=== PATIENT | female | born 1980 | race Caucasian/White ===

== ENCOUNTER 2024-05-15 01:35 | Emergency (ER) | payer OTHER, SELFPAY ==
[2024-05-15 01:43] VITALS: BP 155/102; PULSE 80; RESP 20; TEMP 36.8; O2SAT 95; BMI 31.3
[2024-05-15] MEDS: AMOXICILLIN/CLAVULANATE POTASSIUM 875/125MG TABLET 1 EACH PO (02:35)
[2024-05-15] MEDS: KETOROLAC 30MG/ML VIAL 15 MG IM (02:35)
[2024-05-15] MEDS: TETRACAINE/BENZOCAINE/BUTAMBEN 56 GM SPRAY TP (02:35)
[2024-05-15] MEDS: LIDOCAINE 2% VISCOUS SOL 15ML UDC 15 ML PO (02:35)
--- NOTE | 2024-05-15 02:56 | ED_ITS ---
Discharge Plan Disposition Patient Disposition: Home, Self-Care Condition: Good Prescriptions Prescriptions: New amoxicillin-pot clavulanate 875-125 mg tablet 1 tab PO BID Qty: 20 0RF chlorhexidine gluconate [Peridex] 0.12 % mouthwash 15 ml buccal DAILY 10 Days Qty: 1893 0RF Referrals Follow up/Referrals: Zaki Louise MD [Primary Care Provider] - See instructions Activity Restrictions/Add. Instructions Additional Instructions/Restrictions: You were evaluated in the ER and are appropriate for discharge at this time. Take the prescribed antibiotics as directed, do not skip doses, do not stop taking them early. Also use the prescribed mouthwash as directed. Take Tylenol and ibuprofen if needed for pain, do not exceed the recommended dose on the bottle. Drink water and eat a small snack each time you take these medications to avoid side effects. Use the provided dental balls. Applied to the most painful area. Leave on for 1 hour and remove for 1 hour. Do not eat, drink, or sleep with these in place. Make an appointment with a dentist as soon as possible for further evaluation and tooth removal. Follow-up with primary care doctor for reevaluation in a few days. Return to the ER with any new, worsening, or otherwise concerning symptoms. Clinical Impressions Clinical Impression: Pain, dental, Dental infection Print Language Print Language: Belarusian Discharge ED Provider: Fe Vitale Adult HPI General Chief complaint: PAIN Stated complaint: tooth pain Time Seen by Provider: 05/15/24 02:01 Mode of Arrival: Ambulatory Source of Information: Patient Description of Symptoms (Recalled from ER Triage Doc. by RN): Pt states she has left lower toothache History of Present Illness HPI narrative: 44 year old female who reports a history of hypertension but noncompliance with her BP medications presents to the ER with a broken tooth she believes is now infected. Patient reports she has had a broken tooth for quite a while but has been unable to see a dentist secondary to changes in her insurance. She reports the last day the pain near this tooth has gotten significantly worse. She took Midol prior to arrival but this did not help the pain significantly. She states she is concerned for infection. The last time she saw dentist was approximately a year ago. She has no difficulty breathing or swallowing, she does not report swelling under the tongue or jaw. No fevers or chills. No other associated symptoms. Related Data Previous Rx's ?Medication ?Instructions ?Recorded amoxicillin 875 mg-potassium 1 tab PO BID #20 tabs 05/15/24 clavulanate 125 mg tablet chlorhexidine gluconate 0.12 % 15 ml buccal DAILY 10 days #1,893 05/15/24 mouthwash (Peridex) mL Allergies Allergy/AdvReac Type Severity Reaction Status Date / Time erythromycin base (From Allergy Intermediate Hives Verified 05/15/24 01:46 Erythrocin) [facility] Disclaimer: The information contained in this section may have been updated after the patient was seen, as this information can be updated by other users. Social History Smoking Status: Current every day smoker alcohol intake: never current occupational status: other Travel in the last 8 weeks: None ROS Obtained: Yes Systems reviewed as appropriate & no additional complaints except as documented Per HPI Physical Exam General General appearance: alert and in no apparent distress Head Head exam: atraumatic and normocephalic Eye Eye exam: Present PERRL and EOMI ENT ENT exam: Present mucous membranes moist Expanded ENT Exam Teeth exam: Present fractured tooth # (18 with associated dental caries), dental tenderness # (18 with associated gingival swelling but no abscess) and gingival swelling Comment: No sublingual or submandibular swelling or woodiness, no stridor, tolerating secretions well, no trismus Neck Neck exam: Present normal inspection and full ROM Chest Chest inspection: Present symmetric chest wall rise Respiratory Respiratory exam: Absent respiratory distress or stridor Cardiovascular Cardiovascular exam: Present regular rate and normal rhythm Extremities Exam Extremities exam: Present full ROM Neurological Exam Neurological exam: Present alert and oriented X3; Absent motor sensory deficit Psychiatric Psychiatric exam: Present normal affect and normal mood Skin Skin exam: Present warm and dry Medical Decision Making Medical Records Screening: Per USPSTF and CDC recommendations, given the prevalence of disease in our region, it is our hospital?s policy to screen for HIV and viral Hepatitis for all patients aged 18 and over and those with ongoing risk factors. Sebastian Inquiry Pt receiving controlled substance: No Vital Signs: 05/15/24 01:43 Temperature 98.2 F Temperature Source Oral Pulse Rate [Right Brachial] 80 Respiratory Rate 20 Blood Pressure [Right Arm] 155/102 H Blood Pressure Mean [Right Arm] 119 Blood Pressure Source [Right Arm] Automatic Cuff Blood Pressure Position [Right Arm] Sitting 02 Sat by Pulse Oximetry 95 Oxygen Delivery Method Room Air Orders (Tests/Meds): ED MEDICATIONS Discontinued Medications Generic Name Dose Route Start Last Admin Trade Name Anthony PRN Reason Stop Dose Admin Amoxicillin/Clavulanate Potassium 1 each 05/15/24 02:30 05/15/24 02:35 Amoxicillin/Clavulanate Potassium 875/125mg Tablet PO 05/15/24 02:31 1 each ONCE ONE Administration Benzocaine/Butamben/Tetracaine HCl 1 gm 05/15/24 02:30 05/15/24 02:35 Tetracaine/Benzocaine/Butamben 56 Gm Dixon TP 05/15/24 02:31 1 gm ONCE ONE Administration Ketorolac Tromethamine 15 mg 05/15/24 02:30 05/15/24 02:35 Ketorolac 30mg/Ml Vial IM 05/15/24 02:31 15 mg ONCE ONE Administration Lidocaine HCl 15 ml 05/15/24 02:30 05/15/24 02:35 Lidocaine 2% Viscous Isa 15ml Udc PO 05/15/24 02:31 15 ml ONCE ONE Administration Medical Decision Narrative: In summary, this 44-year-old female with comorbidities described in the HPI not at goal therapy presents to the emergency department today with left mandibular dental pain. On initial evaluation patient is hemodynamically stable, afebrile, overall well-appearing, tenderness to palpation at the base of tooth 18 with associated gingival swelling but no abscess. The tooth is fractured and there are associated dental caries. Differential diagnosis includes but is not limited to dental fracture, gingivitis, dental abscess, I considered Cal's angina but have no evidence of this clinically since patient does not have any woodiness of the floor the mouth, no submandibular swelling, no lymphadenopathy, no stridor or difficulty tolerating secretions, no trismus, no fever. I do not believe patient requires labs or imaging. I offered her dental block but after shared decision-making conversation, she declined this. She would prefer to have dental balls. I also administered Toradol for pain control. Patient also received Augmentin for infection treatment. Augmentin was prescribed as well as Peridex oral solution. Patient was given instructions on symptomatic management, medication use, follow up instructions, and return precautions for the emergency department. Patient indicated understanding and was discharged in stable condition. Critical Care Critical Care Time Critical Care Time: No
[2024-05-15 03:05] VITALS: BP 158/116; PULSE 83; RESP 18; TEMP 36.7; O2SAT 99
== END 2024-05-15 03:13 | disposition home or self-care (01) ==
LOC: ER 03:08
PROVIDERS: Emergency Provider Emergency Medicine; PCP Pediatrics
DX: K06.1 Gingival enlargement (principal); K02.9 Dental caries, unspecified; I10 Essential (primary) hypertension; F17.210 Nicotine dependence, cigarettes, uncomplicated; Z91.148 Patient's other noncompliance with medication regimen for other reason; K08.89 Other specified disorders of teeth and supporting structures
CPT/HCPCS: 96372; 99283; J1885

== ENCOUNTER 2024-08-19 16:42 | Emergency (ER) | payer OTHER, SELFPAY ==
[2024-08-19 16:48] VITALS: BP 132/91; PULSE 84; O2SAT 99
--- OUTSIDE RECORDS SUMMARY | 2024-08-19 16:50 | XMS_ITS | Encounter Summary ---
Author Organization Healthcare Address [address] [place] [address] Care Team Providers Care Lining Stitcher Name Role Phone None, None Primary Care Provider [phone] Zaki Louise Primary Care Provider [phone] Encounter Details Date Type Department Care Team (Late st Contact Info) Description 09/01/2021 Ophth Exam [facility] [address] [place] [address] Fei Luna MD [address] [address] Social History Tobacco Use Types Packs/Day Years Used Date Smoking Tobacco: Every Day Cigarettes Smokeless Tobacco: Never Alcohol Use Standard Drinks/Week Comments Not Currently 0 (1 standard drink = 0.6 oz pur e alcohol) Comments No Sex and Gender Information Value Date Recorded Sex Assigned at Female 08/31/2021 11:21 AM EDT Legal Sex Female 8:46 PM EDT Gender Identity Female 08/31/2021 11:21 AM EDT Sexual Orientation Straight 08/31/2021 11 :21 AM EDT COVID-19 Exposure Response Date Recorded In the last 10 days, have yo u been in contact with someone who was confirmed or suspected to have Coronavirus/COVID-19? No / Unsure 09/01/2021 3:14 PM EDT documented as of this encounter Functional Status * Calculated C-SSRS Risk Score (Lifetime/Recent) Answer Date of Assessment Author No Risk Indicated 09/01/2021 5:10 PM EDT Mariama Gutierrez RN * Question Answer Date of Assessment Author 1. Wish to be (Past 1 Month) No 09/01/2021 5:10 PM EDT Mariama Childers RN 2. Non-Specific Active Suici justo Thoughts (Past 1 Month) No 09/01/2021 5:10 PM EDT Sacha Childers RN 6. Suicidal Behavior (Lifetime) No 5:10 PM EDT Mariama Childers RN documented as of this encounter Plan of Treatment Not on file documented as of this encounter Visit Diagnoses Not on filedocumented in this encounter Additional Health Concerns Infection Onset Date Last Indicated Resolved Time Meningitis Rule-Out 10/15/2021 10/15/2021 10/16/19 1:06 PM EDT Assessment Noted Time A fall risk assessment has been complete d for the patient 03/10/2021 3:17 PM EST documented as of this encounter Care Teams Lining Stitcher Relationship Specialty Start Date End Date None, None [address] [place] [id number] PCP - General 08/12/20 10/14/21 Zaki Louise [address] [place] [id number] PCP - General 10/15/21 documented as of this encounter
--- OUTSIDE RECORDS SUMMARY | 2024-08-19 16:50 | XMS_ITS | Encounter Summary ---
Author Organization Healthcare Address [address] [place] [address] Care Team Providers Care Human Services Professional Name Role Phone None, None Primary Care Provider [phone] Zaki Louise Primary Care Provider [phone] Encounter Details Date Type Department Care Team (Late st Contact Info) Description 08/13/2020 Ophth Exam [facility] [address] [place] [address] Serg Henderson, Social History Tobacco Use Types Packs/Day Years Used Date Smoking Tobacco: Every Day Cigarettes Smokeless Tobacco: Never Alcohol Use Standard Drinks/Week Comments Not Currently 0 (1 standard drink = 0.6 oz pur e alcohol) Comments Unknown Sex and Gender Information Value Date Recorded Sex Assigned at Female 08/31/2021 11:21 AM EDT Legal Sex Female 8:46 PM EDT Gender Identity Female 08/31/2021 11:21 AM EDT Sexual Orientation Straight 08/31/2021 11 :21 AM EDT COVID-19 Exposure Response Date Recorded In the last month, have you been in contact with someone who was confirmed or suspected to have Coronavirus / COVID-19? No / Unsure 08/12/2020 10:56 PM EDT documented as of this encounter Functional Status * Calculated C-SSRS Risk Score (Lifetime/Recent) Answer Date of Assessment Author No Risk Indicated 08/13/2020 8:03 AM EDT Dulce Benavides RN * Question Answer Date of Assessment Author 1. Wish to be (Past 1 Month) No 021 8:03 AM EDT Dulce Benavdies RN 2. Non-Specific Active Suici justo Thoughts (Past 1 Month) No 08/13/2020 8:03 AM EDT Tiffanie Benavides RN 6. Suicidal Behavior (Lifetime) No 8:03 AM EDT Dulce Benavides RN documented as of this encounter Plan of Treatment Not on file documented as of this encounter Visit Diagnoses Not on filedocumented in this encounter Additional Health Concerns Infection Onset Date Last Indicated Resolved Time Meningitis Rule-Out 10/15/2021 10/15/2021 10/16/19 22 1:06 PM EDT documented as of this encounter Care Teams Human Services Professional Relationship Specialty Start Date End Date None, None [address] [place] [id number] PCP - General 08/12/20 10/14/21 Zaki Louise [address] [place] [id number] PCP - General 10/15/21 documented as of this encounter
--- OUTSIDE RECORDS SUMMARY | 2024-08-19 16:50 | XMS_ITS | Clinical Summary ---
Author Organization [facility] Address [address] [place] [address] Care Team Providers Care Transit Vehicle Inspector Name Role Phone Zaki Louise Renetta Primary Care Provider [phone] Allergies Active Allergy Reactions Criticality Noted Date Comments Azithromycin Unknown - Patient st ates they do not know rxn details Low 05/17/2014 Chocolate Hives Medium 08/13/2020 Codeine Nausea,Other - pleas e document in the comment field Low 2020 Erythromycin Rash,Hives,Unknown - Patient states they do not know rxn details Medium 03/13/2020 Mushroom Extract Complex (Obsolete) Other - please document in the comment field Low 08/13/2020 blisters Medications famotidine (Pepcid) 10 MG tabletIndication s:Heartburn Take 1 tablet (10 mg) by mouth 1 (one) time each day before evening meal. Active SUMAtriptan (Imitrex) 50 MG tablet Take 1 tablet (50 mg) by mouth if needed for migraine. May repeat dose once in 2 hours if no relief. Do not exceed 2 doses in 24 hours. Active calcium carbonate (Tums) 500 MG chewable tablet Chew 2 tablets (1,000 mg) every night. 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 Now pt presents with LE scotoma with disc finding suspicious for mild disc edema. Her OCT evaluation as compared to prior, shows mild increased retinal nerve fibre thickness (Previous average in inferior quadrant is 145 , now it is 161). This is small variation , however given that mild increased disc edema is symptomatic with new scotoma in left eye, and given her prior history, it is suspicious for optic neuritis. Given her rt eye Vn is 20/800, she is now one eyed and would need admission for work up for repeat imaging and consideration of IV steroids vs IvIG/PLEX if she were actually having a repeat event. Her optic neuritis appears atypical due to 1. Presence of disc edema- majority of typical optic neuritis 2/2 MS is retrobulbar 2. Lack of visual recovery in RE After [address] st event. Her prior NMO/MOG results have been negative. Her prior RE disc edema is quite florid and makes it less likely to be Lebers. --MRV without evidence of stenosis or thrombosis - CTA head and neck with evidence of possible high-grade stenosis of distal right vertebral artery - MRI orbits - questionable rt optic nerve enhancement - ESR CRP, Bartonella antibody titers, SAHARA, Lyme serology, QuantiFERON were unremarkable -syphilis IgG antibody was positive but treponema pallidum particle agg. Test and RPR were not reactive. She was also seen by infectious disease who thought that the syphilis results were likely false-positive and unlikely cause of optic neuritis. -Her Bartonella IgG was positive but IgM was negative and was thought to be likely from a previous exposure to Bartonella and then recommended repeating labs in 2 weeks. - CSF showed normal protein, elevated glucose likely secondary to hyperglycemia, normal cell count, CSF VDRL negative, CSF MS panel negative - NMO/MOG negative Plan - Admit to General Neurology - MRI H and Orbit wwo contrast - May consider repeat LP if imaging is unrevealing - Repeat NMO/MOG, SAHARA, Bartonella titre - Could consider autoimmune/paraneoplastic work up if first line of investigation is negative. - Will hold DVT prophylaxis for possible LP - Will not initiate on further treatment for now, pending MRI Optic neuropathy, right 2020 Afferent pupillary defect of right eye Ear drainage 2020 Joint pain 2020 Profound vision loss of one eye 2020 Sinus problem 2020 Visual field defect of right eye 2020 High risk multigravida, antepartum 11/08/2014 Resolved Problems Problem Noted Date Diagnosed Date Resolved Date Acute ischemic left MCA stroke 09/01/2021 09/02/2021 Family History Medical History Relation Name Comments Breast cancer Mother Relation Name Status Comments Mother Social History Tobacco Use Types Packs/Day Years Used Date Smoking Tobacco: Every Day Cigarettes 1 26.5 Started: 1998 Smokeless Tobacco: Never Tobacco Cessation:Ready to Q uit: Not Asked; Counseling Given: Not Answered Alcohol Use Standard Drinks/Week Comments Not Currently 0 (1 standard drink = 0.6 oz pur e alcohol) Comments No Sex and Gender Information Value Date Recorded Sex Assigned at Female 08/31/2021 11:21 AM EDT Legal Sex Female 8:46 PM EDT Gender Identity Female 08/31/2021 11:21 AM EDT Sexual Orientation Straight 08/31/2021 11 :21 AM EDT Last Filed Vital Signs Vital Sign Reading Time Taken Comments Blood Pressure 131/84 10/15/2021 11:00 AM EDT Pulse 61 10/15/2021 11:00 AM EDT Temperature 37.2 C (99 F) 10/15/2021 10:20 AM EDT Respiratory Rate 14 10/15/2021 11:00 AM EDT Oxygen Saturation 92% 10/15/2021 11:00 AM EDT Inhaled Oxygen Concentration - - Weight 96.8 kg (213 lb 6.5 oz) 10/15/2021 8:50 A M EDT Height 170.2 cm (5' 7 ) 10/15/2021 8:50 AM EDT Body Mass Index 33.42 10/15/2021 8:50 AM EDT Plan of Treatment Health Maintenance Due Date Last Done Comments [facility]-Depression Screening 1980 [facility]-/Child/Adol SDOH Screenings 1982 [facility]-Varicella Vaccines (1 of 2 - 13+ 2-dose series) 1995 HPV Vaccines (1 - 3-dose series) 1997 [facility]-Hepatitis B Vaccines (2 of 3 - 3-dose series) 10/30/1997 10/02/1997 [facility]- SDOH Screenings 2000 [facility]-Adult SDOH Screenings 2000 [facility]-Pap Smear 05/27/2003 05/26/2000 [facility]-Cervical Cancer Screening 2012 [facility]-HPV/Cotest 2012 05/26/2000 [id number] Vaccine ( - season) 2023 12/16/2020 [facility]-Influenza Vaccine (Season Ended) 2024 12/24/2010, 12/12/2008 [facility]-DTaP,Tdap,and Td Vaccines (3 - Td or Tdap) 08/14/2026 08/14/2016, 10/02/1997 [facility]-Zoster Vaccines (1 of 2) 2032 [facility]-HIV Screening Completed 09/01/2021, , 03/14/2020, Additional history exists [facility]-Hepatitis C Screening Completed 2021, 08/13/2020, 03/14/2020, Additional history exists [facility]-Obesity Intervention Completed 04/05/2022 [facility]-HIB Vaccines Aged Out No longer e ligible based on patient's age to complete this topic [facility]-Hepatitis A Vaccines Aged Out No longer eligible based on patient's age to complete this topic [facility]-IPV Vaccines Aged Out No longer e ligible based on patient's age to complete this topic [facility]-Pneumococcal Vaccine: Pediatrics (0 to 5 Years) and At-Risk Patients (6 to 49 Years) Aged Out No longer eligible based on patient's age to complete this topic [facility]-Rotavirus Vaccines Aged Out No lo nger eligible based on patient's age to complete this topic Procedures Procedure Name Priority Date/Time Associated Diagnosis Comments HEPATITIS C ANTIBODY - ED W/REFLEX TO HCV QUANT PCR STAT 09/01/2021 3:27 PM EDT HIV 1/2 ANTIBODY/ANTIGEN SCREEN WITH REFLEX TO HIV I/II DIFFERENTIATION STAT 09/01/2021 3:27 PM EDT CYTO DATA CONVERSION Routine 05/26/2000 12:00 AM EDT from Last 3 Months or Most Recently Relevant to Health Maintenance Results * HIV 1 & 2 Antibody/Antigen Screen (09/01/2021 3:27 PM EDT) Pathologist [facility] HIV 1 & 2 Antibody/Anti gen Screen Nonreactive Nonreactive 09/01/2021 5:47 PM EDT [facility] Blood Venous blood specimen / Unknown Venipuncture / Unknown 09/01/2021 3:27 PM EDT 09/01/2021 4:20 PM EDT us Bran Yi MD LAB BLOOD ORDERABLES Final Result Performing Organization Address City/[facility] Co de Phone Number [facility] [address] [place] [address] * Hepatitis C Antibody - ED (09/01/2021 3:27 PM EDT) Pathologist [facility] Hepatitis C Antibody Negative Negative 09/01/2021 5:46 PM EDT [facility] Blood Venous blood specimen / Unknown Venipuncture / Unknown 09/01/2021 3:27 PM EDT 09/01/2021 4:20 PM EDT us Bran Yi MD LAB BLOOD ORDERABLES Final Result Performing Organization Address City/[facility] Co de Phone Number [facility] [address] [place] [address] * (ABNORMAL) Cytology (05/26/2000 12:00 AM EDT) 05/26/2000 05/27/2000 8:4 7 AM EDT Narrative [facility] - 06/07/2000 10:14 AM EDT [facility] MR #: [id number] [facility] [address] [place], [place] [address] 1980 (Age: 20) FW Collect Date: 05/26/2000 00:00 Receipt Date: 05/27/2000 08:47 Page 1 DEPARTMENT OF PATHOLOGY AND LABORATORY MEDICINE CYTOPATHOLOGY REPORT Email: [email or web address] [phone] ATTENDING MD/Practitioner: Nancie Campos MD Service: CWO Location: [facility] Reported: 06/07/2000 10:14 Collected: 05/26/2000 00:00 INTERPRETATION CERVICAL/VAGINAL PAP SMEAR: RARE ATYPICAL SQUAMOUS CELLS OF UNDETERMINED SIGNIFICANCE. SATISFACTORY BUT LIMITED BY PARTIALLY OBSCURING INFLAMMATION. CONSIDER REPEAT PAP IN 4-6 MONTHS UTILIZING THE THIN PREP (LIQUID BASED PAP). Electronically Signed Out CAITLYN Serrano (ASCP) Joe Araujo MD Cervical cytology is a screening test primarily for squamous cancers and precursors and has associated false negative and positive results. New technologies such as liquid based sampling may decrease but will not eliminate all false negative results. Regular screening and follow-up of unexplained clinical signs and symptoms are recommended to minimize false negative results. Please see the ASCCP website (www.asccp.org) for followup recommendations. If HPV testing was requested, correlation with the results is suggested (please call Microbiology at [phone] for results). CLINICAL INFORMATION: Menstrual History: Date of Last Menstrual Period: {Not Provided} Contraceptive History: Depo SPECIMEN DESCRIPTION: A: CERVICAL/VAGINAL PAP SMEAR SMEARS: PAP STAIN ICD: 795.0 ABNORMAL PAP SMEAR CERVIX, NONSPECIFIC V24.2 ROUTINE FOLLOW-UP F: A; 74024 SCREEN, 04271 C\V (PO) SNOMED CODES: A; [id number] M- [id number] In cases where a pathologist has signed out the report, the service has been rendered in part by a resident. The signing pathologist has performed and is responsible for the reported pathologic evaluation. us Historical Provider LAB PATHOLOGY ORDERABLES Final Result [facility]QUEST from Last 3 Months or Most Recently Relevant to Health Maintenance Insurance [employer] [facility] MEDICAID Advance Directives * Full Code (Latest Code Status on File) Date Activated Date Inactivated Comments 08/13/2020 2:06 AM 08/13/2020 7:52 PM Question Answer Comments Patient has decision-making capacity? Yes Care Teams Transit Vehicle Inspector Relationship Specialty Start Date End Date Zaki Louise [address] [place] [address] PCP - General 10/15/21
--- OUTSIDE RECORDS SUMMARY | 2024-08-19 16:50 | XMS_ITS | Data Portability ---
Author Organization [facility] Miguel Angel & MUNIR Galaviz ADMIN Address [address] [place] [id number] Care Team Providers Care Duty Manager Name Role Phone AYAD BOO Primary Care Provider Unavailab le Assessment No assessment recorded. Plan of Treatment Reminders Order Date Submit Date Provider Last Modified By Organization Details Last Modified Time Details Appointments None recorded. Lab lipid panel, serum 2023 024 [facility], [address], [address], [place], [address], 4 06:38:03 TSH + free T4, serum 2023 024 [facility], [address], [address], [place], [address], 4 06:38:00 CBC w/ auto diff 2023 024 [facility], [address], [address], [place], [address], 4 06:38:01 CMP, serum or plasma 2023 024 [facility], [address], [address], [place], [address], 4 06:38:02 Referral None recorded. Procedures None recorded. Surgeries None recorded. Imaging MAMMO, screening, bilateral - Okay to perform an additional tests if needed. [email or web address] (Centralized Scheduling), [address], [place], [address], 4 10:21:45 Medication Orders omeprazole 20 mg capsule,de layed release 2023 024 [facility], [address] [place] [address], [facility], [place], [address], 5 15:58:45 lisinopril 5 mg tablet 2023 024 [facility], [address] [place] [address], [address] [address], [place], [address], 5 15:58:43 amoxicilli n 875 mg tablet [address], [address] [place] [address], [place], [address], 4 11:01:28 fluticason e propionate 50 mcg/actuat ion nasal spray,susp ension 2022 023 [facility], [address] [place] [address], [facility], [place], [address], 4 11:22:21 omeprazole 20 mg capsule,de layed release 2022 023 [facility], [address] [place] [address], [address] [address], [place], [address], 3 15:58:57 Patient TargetsNo targets recorded. Patient InstructionsNo instructions recorded. Reason for Referral None Reported. Results Created Date Observation Date Name Description Value Unit Range Abnormal Flag Note LastModifiedBy Organization Detail LastModifiedTime 01/03/20 24 01/04/2024 TSH+F REE T4 TSH 0.839 uIU/m L 0.450- 4.500 normal Not Available [facility] ([facility]) [address], [place], [address], 01/04/2024 06:38:00 11/12/20 24 01/04/2024 TSH+F REE T4 T4,free(dire ct) 1.11 NG/dL 0.82-1 .77 normal Not Available [facility] ([facility]) [address] [place], [address], 01/04/2024 06:38:00 01/03/20 24 01/04/2024 CBC WITH DIFFE RENTI AL/PL ATELE T WBC 9.3 x10e3 /uL 3.4-10 .8 normal Not Available [facility] ([facility]) [address] [place], [address], 01/04/2024 06:38:01 01/03/20 24 01/04/2024 CBC WITH DIFFE RENTI AL/PL ATELE T RBC 4.53 x10e6 /uL 3.77-5 .28 normal Not Available [facility] ([facility]) [address] [place], [address], 01/04/2024 06:38:01 01/03/20 24 01/04/2024 CBC WITH DIFFE RENTI AL/PL ATELE T hemoglobin 15.3 g/dL 11.1-1 5.9 normal Not Available [facility] ([facility]) [address] [place], [address], 01/04/2024 06:38:01 01/03/20 24 01/04/2024 CBC WITH DIFFE RENTI AL/PL ATELE T hematocrit 45.4 % 34.0-4 6.6 normal Not Available [facility] ([facility]) [address] [place], [address], 01/04/2024 06:38:01 01/03/20 24 01/04/2024 CBC WITH DIFFE RENTI AL/PL ATELE T MCV 100 fL 79-97 above high normal Not Available [facility] ([facility]) [address] [place], [address], 01/04/2024 06:38:01 01/03/20 24 01/04/2024 CBC WITH DIFFE RENTI AL/PL ATELE T MCH 33.8 pg 26.6-3 3.0 above high normal Not Available [facility] ([facility]) [address] [facility], [place], [address], 01/04/2024 06:38:01 01/03/20 24 01/04/2024 CBC WITH DIFFE RENTI AL/PL ATELE T MCHC 33.7 g/dL 31.5-3 5.7 normal Not Available [facility] ([facility]) [address] [place], [address], 01/04/2024 06:38:01 01/03/20 24 01/04/2024 CBC WITH DIFFE RENTI AL/PL ATELE T RDW 11.7 % 11.7-1 5.4 Not Available [facility] ([facility]) [address] [facility], [place], [address], 01/04/2024 06:38:01 01/03/20 24 01/04/2024 CBC WITH DIFFE RENTI AL/PL ATELE T platelets 272 x10e3 /uL 150-45 0 normal Not Available [facility] ([facility]) [address] [facility], [place], [address], 01/04/2024 06:38:01 01/03/20 24 01/04/2024 CBC WITH DIFFE RENTI AL/PL ATELE T neutrophils 68 % not estab. normal Not Available [facility] ([facility]) [address] [place], [address], 01/04/2024 06:38:01 01/03/20 24 01/04/2024 CBC WITH DIFFE RENTI AL/PL ATELE T lymphs 24 % not estab. normal Not Available [facility] ([facility]) [address] [place], [address], 01/04/2024 06:38:01 01/03/20 24 01/04/2024 CBC WITH DIFFE RENTI AL/PL ATELE T monocytes 6 % not estab. normal Not Available [facility] ([facility]) [address] [facility], [place], [address], 01/04/2024 06:38:01 01/03/20 24 01/04/2024 CBC WITH DIFFE RENTI AL/PL ATELE T eos 2 % not estab. normal Not Available [facility] ([facility]) [address] [place], [address], 01/04/2024 06:38:01 01/03/20 24 01/04/2024 CBC WITH DIFFE RENTI AL/PL ATELE T basos 0 % not estab. normal Not Available [facility] ([facility]) [address] [place], [address], 01/04/2024 06:38:01 01/03/20 24 01/04/2024 CBC WITH DIFFE RENTI AL/PL ATELE T immature cells TOURS HOSTESS Not Available [facility] ([facility]) [address] [place], [address], 01/04/2024 06:38:01 01/03/20 24 01/04/2024 CBC WITH DIFFE RENTI AL/PL ATELE T neutrophils (absolute) 6.3 x10e3 /uL 1.4-7. 0 normal Not Available [facility] ([facility]) [address] [place], [address], 01/04/2024 06:38:01 01/03/20 24 01/04/2024 CBC WITH DIFFE RENTI AL/PL ATELE T lymphs (absolute) 2.3 x10e3 /uL 0.7-3. 1 normal Not Available [facility] ([facility]) [address] [place], [address], 01/04/2024 06:38:01 01/03/20 24 01/04/2024 CBC WITH DIFFE RENTI AL/PL ATELE T monocytes(ab solute) 0.5 x10e3 /uL 0.1-0. 9 normal Not Available [facility] ([facility]) [address] [facility], [place], [address], 01/04/2024 06:38:01 01/03/20 24 01/04/2024 CBC WITH DIFFE RENTI AL/PL ATELE T eos (absolute) 0.2 x10e3 /uL 0.0-0. 4 normal Not Available [facility] ([facility]) [address] [facility], [place], [address], 01/04/2024 06:38:01 01/03/20 24 01/04/2024 CBC WITH DIFFE RENTI AL/PL ATELE T baso (absolute) 0.0 x10e3 /uL 0.0-0. 2 normal Not Available [facility] ([facility]) [address] [facility], [place], [address], 01/04/2024 06:38:01 01/03/20 24 01/04/2024 CBC WITH DIFFE RENTI AL/PL ATELE T immature granulocytes 0 % not estab. Not Available [facility] ([facility]) [address] [facility], [place], [address], 01/04/2024 06:38:01 01/03/20 24 01/04/2024 CBC WITH DIFFE RENTI AL/PL ATELE T immature grans (abs) 0.0 x10e3 /uL 0.0-0. 1 Not Available [facility] ([facility]) [address] [place], [address], 01/04/2024 06:38:01 01/03/20 24 01/04/2024 CBC WITH DIFFE RENTI AL/PL ATELE T NRBC TOURS HOSTESS Not Available [facility] ([facility]) [address] [place], [address], 01/04/2024 06:38:01 01/03/20 24 01/04/2024 CBC WITH DIFFE CASSIDY AL/PL ELIDIALE T hematology comments: TOURS HOSTESS Not Available [facility] ([facility]) [address] [facility], [place], [address], 01/04/2024 06:38:01 01/03/20 24 01/04/2024 COMP. METAB OLIC PANEL (14) glucose 98 mg/dL 70-99 normal Not Available [facility] ([facility]) [address] [facility], [place], [address], 01/04/2024 06:38:02 01/03/20 24 01/04/2024 COMP. METAB OLIC PANEL (14) BUN 8 mg/dL 6-24 normal Not Available [facility] ([facility]) [address] [facility], [place], [address], 01/04/2024 06:38:02 01/03/20 24 01/04/2024 COMP. METAB OLIC PANEL (14) creatinine 0.76 mg/dL 0.57-1 .00 normal Not Available [facility] ([facility]) [address] [facility], [place], [address], 01/04/2024 06:38:02 01/03/20 24 01/04/2024 COMP. METAB OLIC PANEL (14) BUN/creatini ne ratio 11 9-23 normal Not Available [facility] ([facility]) [address] [facility], [place], [address], 01/04/2024 06:38:02 01/03/20 24 01/04/2024 COMP. METAB OLIC PANEL (14) sodium 142 mmol/ L 134-14 4 normal Not Available [facility] ([facility]) [address] [facility], [place], [address], 01/04/2024 06:38:02 01/03/20 24 01/04/2024 COMP. METAB OLIC PANEL (14) potassium 4.8 mmol/ L 3.5-5. 2 normal Not Available [facility] ([facility]) [address] [place], [address], 01/04/2024 06:38:02 01/03/20 24 01/04/2024 COMP. METAB OLIC PANEL (14) chloride 104 mmol/ L 96-106 normal Not Available [facility] ([facility]) [address] [place], [address], 01/04/2024 06:38:02 01/03/20 24 01/04/2024 COMP. METAB OLIC PANEL (14) carbon dioxide, total 23 mmol/ L 20-29 normal Not Available [facility] ([facility]) [address] [place], [address], 01/04/2024 06:38:02 01/03/20 24 01/04/2024 COMP. METAB OLIC PANEL (14) calcium 10.1 mg/dL 8.7-10 .2 normal Not Available [facility] ([facility]) [address] [place], [address], 01/04/2024 06:38:02 01/03/20 24 01/04/2024 COMP. METAB OLIC PANEL (14) protein, total 6.8 g/dL 6.0-8. 5 normal Not Available [facility] ([facility]) [address] [place], [address], 01/04/2024 06:38:02 01/03/20 24 01/04/2024 COMP. METAB OLIC PANEL (14) albumin 4.3 g/dL 3.9-4. 9 normal Not Available [facility] ([facility]) [address] [facility] [place], [address], 01/04/2024 06:38:02 01/03/20 24 01/04/2024 COMP. METAB OLIC PANEL (14) globulin, total 2.5 g/dL 1.5-4. 5 Not Available [facility] ([facility]) [address], [place], [address], 01/04/2024 06:38:02 01/03/20 24 01/04/2024 COMP. METAB OLIC PANEL (14) bilirubin, total 0.2 mg/dL 0.0-1. 2 normal Not Available [facility] ([facility]) [address] [place], [address], 01/04/2024 06:38:02 01/03/20 24 01/04/2024 COMP. METAB OLIC PANEL (14) alkaline phosphatase 86 IU/L 44-121 normal Not Available [facility]) [address] [place], [address], 01/04/2024 06:38:02 01/03/20 24 01/04/2024 COMP. METAB OLIC PANEL (14) AST (SGOT) 15 IU/L 0-40 normal Not Available [facility] ([facility]) [address] [facility], [place], [address], 01/04/2024 06:38:02 01/03/20 24 01/04/2024 COMP. METAB OLIC PANEL (14) ALT (SGPT) 16 IU/L 0-32 normal Not Available [facility] ([facility]) [address] [facility] [place], [address], 01/04/2024 06:38:02 01/03/20 24 01/04/2024 LIPID PANEL cholesterol, total 150 mg/dL 100-19 9 normal Not Available [facility] ([facility]) [address] [facility] [place], [address], 01/04/2024 06:38:03 01/03/20 24 01/04/2024 LIPID PANEL triglyceride s 111 mg/dL 0-149 normal Not Available [facility] ([facility]) [address] [facility] [place], [address], 01/04/2024 06:38:03 11/12/20 24 01/04/2024 LIPID PANEL HDL cholesterol 36 mg/dL >39 below low normal Not Available [facility] ([facility]) [address] [facility], [place], [address], 01/04/2024 06:38:03 01/03/20 24 01/04/2024 LIPID PANEL VLDL cholesterol celine 20 mg/dL 5-40 Not Available [facility] ([facility]) [address] [facility], [place], [address], 01/04/2024 06:38:03 01/03/20 24 01/04/2024 LIPID PANEL LDL chol calc ([facility]) 94 mg/dL 0-99 Not Available [facility]) [address] [facility], [place], [address], 01/04/2024 06:38:03 01/03/20 24 01/04/2024 LIPID PANEL LDL calc comment: TOURS HOSTESS Not Available [facility] ([facility]) [address] [facility], [place], [address], 01/04/2024 06:38:03 Result Notes None recorded. Problems Name Problem SNOMED Code Status Onset Date Resolution Date Notes Provider Name and Address Organization Details Recorded Time Essential hypertension 88173760 Active 2023 Ayad Boo MD [address] , [place], [address] , [place] - [facility] & [place] 4 11:33:10 Gastroesophag eal reflux disease without esophagitis 081388295 Active 2022 Ayad Boo MD [address] , [place], [address] , [place] - [facility] & [place] 3 10:45:39 Problem Notes None recorded. Procedures Surgical History Date Name Laterality Status Provider Name and Address Organization Details Recorded Time 02/21/19 16 Abdominal Surgery completed Farrah Carey [place] - [facility] [place] & [place] 03/29/2022 10:09:04 10/21/19 15 Date of Last Pap Smear completed Farrah GÓMEZ MUNIR [facility] & [place] 03/29/2022 10:09:03 02/21/19 01 Abdominal Surgery completed Farrah GÓMEZ [facility] & [place] 03/29/2022 10:09:04 02/21/18 91 [facility]end[facility] & [place] 03/29/2022 10:09:04 Imaging Results None recorded. Procedure Notes None recorded. Medical Equipment None Reported. 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 Not available 03/29/2022 57473 17 RxNorm [facility] & [place] 3 10:09:03 Medications Name Sig Start Date Stop Date Status Note LastModified by Organization Details LastModified Time Prescripti on - Prior Authorizat ion Request 03/29 completed cover PT Not Available Not Available Not Available prednisone 10 mg tablet TAKE 5 TABS DAILY X3 DAYS, 4 TABS X3 DAYS, 3 TABS X1 DAY, 2 TABS X2 DAYS, 1 TAB X1 DAY 03/29 completed Not Available Not Available Not Available ibuprofen 800 mg tablet 01/02 completed Not Available Not Available Not Available sumatripta n 100 mg tablet 01/02 completed Not Available Not Available Not Available hydrocodon e 5 mg-acetami nophen 325 mg tablet TAKE 1 TABLET BY MOUTH THREE TIMES DAILY 01/02 completed Not Available Not Available Not Available sucralfate 1 gram tablet TAKE 1 TABLET BY ORAL ROUTE DAILY ON AN EMPTY STOMACH ON WAKING AND AT BEDTIME 01/02 completed Not Available Not Available Not Available penicillin V potassium 500 mg tablet 03/29 completed Not Available Not Available Not Available topiramate 25 mg tablet 01/02 completed Not Available Not Available Not Available valacyclov ir 500 mg tablet TAKE 2 TABLETS BY MOUTH 3 TIMES A DAY FOR 7 DAYS 01/02 completed Not Available Not Available Not Available amoxicilli n 875 mg tablet Take 1 tablet twice a day by oral route for 10 days. 01/02 completed Not Available Not Available Not Available meclizine 25 mg tablet 01/02 completed Not Available Not Available Not Available omeprazole 20 mg capsule,de layed release Take 1 capsule every day by oral route for 30 days. active Not Available Not Available No t Available lisinopril 5 mg tablet Take 1 tablet every day by oral route for 30 days. active Not Available Not Available No t Available fluticason e propionate 50 mcg/actuat ion nasal spray,susp ension [place] 1 spray every day by intranasa l route for 30 days. 01/02 completed Not Available Not Available Not Available amoxicilli n 875 mg-potassi um clavulanat e 125 mg tablet TAKE 1 TABLET BY MOUTH TWICE A DAY FOR 10 DAYS active Not Available Not Available No t Available Vitals Date Recorded Body weight Body temperature Provider N stephanie and Address Organization Details Last Updated DateTime 03/29/2022 579421.7 g 96.9 [degF] Farrah AMARAL [facility] & [place] 03/29/2022 10:11:31 Date Recorded Body weight Body temperature Heart rate Systolic blood pressure Diastolic blood pressure Provider Name and Address Organization Details Last Updated DateTime 01/03/2024 65497.0 2 g 97.6 [degF] 82 /min 141 mm[Hg] 96 mm[Hg] Fabiola AMARAL [facility] [place] 11:06:43 Social History Question Answer Notes LastModified by Let Details LastModified Time Tobacco Smoking Status Current Every Day Smoker [facility] & [place] 03/29/2022 10:09:04 Are You Blind Or Do You Have Difficulty Seeing? Yes Information not available 03/29/2022 What Was The Date Of Your Most Recent Tobacco Screening? 01/02/2024 [email or web address] Information not available 03/04/2024 What Is Your Current Pack Years? 20-29packbertoa rs [email or web address] Information not available 03/04/2024 Are You Passively Exposed To Smoke? Yes Information not available 03/29/2022 How Much Tobacco Do You Smoke? 1 PPD Information not available 03/29/2022 How Many Years Have You Smoked Tobacco? 21 [email or web address] Information not available 03/04/2024 Sex: Unknown Functional Status Question Answer Note LastModified by Organizat ion Details LastModified Time Do you use any illicit or recreational drugs? No Information not available 03/29/2022 What is your level of alcohol consumption? Occasional [email or web address] Information not available 03/04/2024 Do you or have you ever used smokeless tobacco? Never used smokeless tobacco Information not available 03/29/2022 What is your exercise level? Occasional Information not available 03/29/2022 Mental Status Question Answer Note LastModified by Organization D etails LastModified Time Do you feel stressed (tense, restless, nervous, or anxious, or unable to sleep at night)? [id number] [email or web address] Information not available 03/04/2024 Family History Relationship Description Onset Age of this Age Resolved Age Notes LastModified by Organization Details LastModified Time Mother Allergy pt. added direct ly (03/29) [email or web address] Not available 03/29/2022 08:23:48 Brother Allergy pt. added direct ly (03/29) [email or web address] Not available 03/29/2022 08:23:48 Son Allergy pt. added direct ly (03/29) [email or web address] Not available 03/29/2022 08:23:48 Daughter Allergy pt. added direct ly (03/29) [email or web address] Not available 03/29/2022 08:23:48 Medical History Condition Response Obesity Y Vision or Eye Problems Y Arthritis Y Reflux/GERD Y Ear or Hearing Problems Y Spine Problems Y Headaches Y Back Problems Y GI Problems Y Gynecological History Statement/Question Response Abnormal Pap N Flow Heavy Date of LMP 12/22/2023 Sexually Active? Y Menses Monthly N Duration of Flow (days) 4 Date of Last Pap Smear 10/20/2014 Current Control Method Tubal Ligat ion Age at Menarche 43 Obstetrics History GPAL:G 0 P 0 0 0 0 Immunizations Vaccine Type Date Status Note Provider Kevin mccormick and Address Organization Details Recorded Time COVID-19, mRNA, LNP-S, PF, 30 mcg/0.3 mL dose 1 completed Jaa Kierra null, [place] [facility] [place] [facility] [place] 11/24/2023 18:21:36 Tdap 7 completed Jaa Kierra null, [place] [facility] [place] 11/24/2023 18:21:36 Influenza, split virus, trivalent, preservative 9 completed Jaa Kierra null, [place] [facility] [place] 11/24/2023 18:21:36 Influenza, split virus, trivalent, preservative 1 completed Jaa Kierra null, [place] [facility] [place] [facility] [place] 11/24/2023 18:21:36 Td (adult), 2 Lf tetanus toxoid, preservative free, adsorbed 8 completed Jaa Kierra null, [place] [facility] [place] [facility] [place] 11/24/2023 18:21:36 Hep B, adolescent/high risk 8 completed Jaa Kierra null, [place] [facility] [place] [facility] [place] 11/24/2023 18:21:36 Past Encounters Encounter ID Performer Location Encounter Start Date Encounter Closed Date Diagnosis/Indication Diagnosis SNOMED-CT Code Diagnosis ICD10 Code Diagnosis Note [id number] [facility] [place] [place] [address] [place] [address] 03/29/2022 10:06:21 03/29/2022 10:44:23 Acute sinusitis 68084277 J01.90 Tylenol/Mo jaiden p.r.n. fever. Push p.o. fluid intake. Patient to call if symptoms worsen. Gastroesop hageal reflux disease without esophagitis 636952779 K21.9 [id number] Ayad Boo MD [facility] [place] [address] [place] [address] 01/03/2024 10:49:57 01/03/2024 11:49:01 Adult health examination 869671363 Z00.00 Gastroesop hageal reflux disease without esophagitis 811449001 K21.9 Essential hypertension 38392250 I10 Hyperlipid emia screening 550534327 Z13.220 Screening mammography 24 905631 Z12.31 Health Concerns Section Related Observation LastModified by Organization Detai ls LastModified Time None Recorded Concern Status LastModified by Organization Details LastModified Time None Recorded Advance Directives Directive None Recorded Payers Insurance Date Sequence Insurance Name Policy Number Policy Petit Covered Member ID Petit Member ID Guarantor Name 06/22/2024 1 [employer] [facility] (MEDICAID HMO) Farrah Solares [id number] Farrah Solares 06/25/2024 SLIDING FEE SCHEDULE - DISCOUNT Farrah Solares Notes Date Note Type Note Provider Name and Address Organization Details Recorded Time 03/29/2022 text/html Started feeling bad about 4 days ago. Woke up that morning with nasal congestion. Having some drainage down back of her throat causing coughing. Having sinus pain and pressure around both eyes. Only slight sore throat. No known fevers. Denies vomiting or diarrhea. Has been taking OTC cold/sinus capsules but not improving. No one else sick at home.Used to buy OTC Prilosec for her continued heartburn symptoms but is now out. Requesting a prescription for it if possible. Ayad Boo MD [address], [place], [address], [place] - [facility] [place] [facility] [place] 03/29/2022 10:47:48 01/03/2024 text/html Here for annual check-up today. Fasting for labs this morning except for small amount of lemonade.Has been taking Omeprazole about 3 times per week. Will take it when she gets heartburn. Notices increased heartburn with spicy and salty foods. States she had an EGD many years ago and diagnosed with GERD. Denies feelings of food getting stuck. Denies blood in stools or black tarry stools.Has been checking her BP at home and getting readings of 130-140's/90's. Has been under a lot of stress the past several months.Has family h/o thyroid disease in her father. Ayad Boo MD [address], [place], [address], [facility] - [place] & [place] 01/03/2024 20:28:03 OBGyn Episode No OBEpisode recorded.
[2024-08-19 16:53] VITALS: BP 132/91; PULSE 85; RESP 20; TEMP 36.7; O2SAT 99; BMI 32.8
[2024-08-19 17:01] VITALS: BP 127/78; PULSE 85; RESP 15; O2SAT 99
--- NOTE | 2024-08-19 17:01 | ECG_ITS ---
APPROVED REPORT Exam: Resting ECG HR:82 bpm ECG Measurements Heart Rate 82 AXES NE 134 P 64 QRSd 86 QRS 58 QT 358 T 55 QTc 397 Conclusion Sinus rhythm Electronically signed by : JANETH PURDY, 08/19/2024 23:01:15
--- NOTE | 2024-08-19 17:06 | HMH.EDGENADL ---
Discharge Plan Disposition Patient Disposition: Home, Self-Care Prescriptions Prescriptions: No Action amoxicillin-pot clavulanate 875-125 mg tablet 1 tab PO BID Qty: 20 0RF chlorhexidine gluconate [Peridex] 0.12 % mouthwash 15 ml buccal DAILY 10 Days Qty: 1893 0RF Referrals Follow up/Referrals: Zaki Louise MD [Primary Care Provider, Medical] - See instructions Activity Restrictions/Add. Instructions Additional Instructions/Restrictions: Call your family doctor to establish care for this visit to the emergency department and schedule follow-up within 48 hours to ensure improvement. If you have any worsening of your condition or any other concerning signs or symptoms, return to the emergency department or your primary care doctor for further evaluation. Talk to your family doctor about formal diabetes testing as your glucose today was 133, where normal is less than 100. Take Tylenol 1000 mg every 6 hours (4 times daily) and ibuprofen 400 mg every 6 hours (4 times daily) as needed with food and water to prevent GI upset and kidney damage. Clinical Impressions Clinical Impression: Acute chest wall pain Print Language Print Language: Portuguese Discharge ED Provider: Heriberto Willson General Adult HPI General Chief complaint: Shortness of Breath/Dyspnea Stated complaint: SOA pain in center of lf side moved to shoulders Time Seen by Provider: 08/19/24 16:48 Mode of Arrival: Ambulatory Source of Information: Patient Description of Symptoms (Recalled from ER Triage Doc. by RN): pt is here bc she woke up this morning feeling short of air and then began having left rib pain upon inspiration that goes into shoulder blade. pt does smoke and has been out of blood pressure meds for a month bc she just got insurance back History of Present Illness HPI narrative: Please note that above description of symptoms, in this electronic medical record under categorization of recalled from ER triage doctor by RN are reflective of an initial nursing assessment, however, is not reflective of my full history and physical exam that was personally taken and clarified. Consequentially, this preceding description of symptoms, which may include the patient's categorized chief complaint in the EMR, do not reflect my personal clinical impression, and the ultimate description of history of present illness and patient stated complaints should be deferred to this section of the note. Unless stated otherwise or congruent with this section of the note, additional signs, symptoms, or incongruence should be interpreted as inaccurate with my clinical impression. Related Data Previous Rx's ?Medication ?Instructions ?Recorded amoxicillin 875 mg-potassium 1 tab PO BID #20 tabs 05/15/24 clavulanate 125 mg tablet chlorhexidine gluconate 0.12 % 15 ml buccal DAILY 10 days #1,893 05/15/24 mouthwash (Peridex) mL Allergies Allergy/AdvReac Type Severity Reaction Status Date / Time erythromycin base (From Allergy Intermediate Hives Verified 05/15/24 01:46 Erythrocin) [facility] Disclaimer: The information contained in this section may have been updated after the patient was seen, as this information can be updated by other users. Social History (Updated 05/15/24 @ 03:09 by Fe Vitale MD) Smoking Status: Current every day smoker alcohol intake: never current occupational status: other Travel in the last 8 weeks?: None Have you lived/traveled outside [place] in past 30 days?: No Contact w/someone who lives/traveled outside [place] past 30 days?: No Exposure to someone with infectious disease in past 14 days?: No Do you have a fever (greater than 100.4 F or 38 C)?: No Have you tested positive for COVID-19?: No Exposed to someone with COVID-19 in past 14 days?: No Do you have a sore throat?: No Do you have a cough?: No Do you have any weakness?: No Do you have any diarrhea?: No Are you experiencing any unusual bleeding?: No Do you have any muscle aches/pain?: No Do you have any abdominal pain?: No Are you experiencing loss of taste or smell?: No ROS Obtained: Yes All systems reviewed & no additional complaints except as documented Physical Exam General General appearance: alert Head Head exam: atraumatic and normocephalic Eye Eye exam: Present normal appearance, PERRL and EOMI Neck Neck exam: Present normal inspection, full ROM and trachea midline Respiratory Respiratory exam: Absent respiratory distress, wheezes, stridor, accessory muscle use or prolonged expiratory phase Cardiovascular Cardiovascular exam: Present other (Pulses equal symmetric in upper and lower extremities) Abdominal Exam Abdominal exam: Present soft; Absent distention, tenderness or pulsatile mass Extremities Exam Extremities exam: Absent edema Neurological Exam Neurological exam: Present alert, oriented X3 and CN II-XII intact; Absent motor sensory deficit Skin Skin exam: Present warm and dry; Absent diaphoresis or erythema Medical Decision Making Medical Records Medical records reviewed: Yes I reviewed the patient's medical records. Screening: Per USPSTF and CDC recommendations, given the prevalence of disease in our region, it is our hospital?s policy to screen for HIV and viral Hepatitis for all patients aged 18 and over and those with ongoing risk factors. Sebastian Inquiry Pt receiving controlled substance: No Sebastian was queried for this patient: No Vital Signs: 08/19/24 16:48 08/19/24 16:53 08/19/24 17:01 Temperature 98.1 F Temperature Source Oral Pulse Rate 84 85 Pulse Rate [Left Radial] 85 Respiratory Rate 20 15 Blood Pressure 132/91 H 127/78 Blood Pressure [Right Arm] 132/91 H Blood Pressure Mean [Right Arm] 104 02 Sat by Pulse Oximetry 99 99 99 Oxygen Delivery Method Room Air Room Air Room Air 08/19/24 17:30 Temperature Temperature Source Pulse Rate 84 Pulse Rate [Left Radial] Respiratory Rate 10 L Blood Pressure 121/79 Blood Pressure [Right Arm] Blood Pressure Mean [Right Arm] 02 Sat by Pulse Oximetry 99 Oxygen Delivery Method Room Air Lab Data Lab Results 08/19/24 17:00: WBC 8.9, RBC 4.70, Hgb 15.7, Hct 45.7, MCV 97.2, MCH 33.4 H, MCHC 34.4, RDW 12.8, Plt Count 277, MPV 10.5 H, Neut % (Auto) 64.1, Lymph % (Auto) 29.0, Vigo % (Auto) 5.1, Eos % (Auto) 1.3, Baso % (Auto) 0.2, Neut # (Auto) 5.7, Lymph # (Auto) 2.6, Vigo # (Auto) 0.5, Eos # (Auto) 0.1, Baso # (Auto) 0.0, Sodium 138, Potassium 4.1, Chloride 101, Carbon Dioxide 27, Anion Gap 14.1, BUN 13, Creatinine 1.00, Estimated Creat Clear 110, Estimated GFR 61, Est GFR ( Amer) 74, Glucose 133 H, Calcium 10.3 H, Total Bilirubin 0.4, AST 26, ALT 20, Alkaline Phosphatase 67, Troponin I < 0.01, Total Protein 7.6, Albumin 4.3, Globulin 3.3 H, Albumin/Globulin Ratio 1.3, Serum HCG, Qual Negative, HCG, Quant < 2 08/19/24 17:00 08/19/24 17:00 Orders (Tests/Meds): ED MEDICATIONS Discontinued Medications Generic Name Dose Route Start Last Admin Trade Name Anthony PRN Reason Stop Dose Admin Aspirin 324 mg 08/19/24 17:07 08/19/24 17:21 Aspirin 81mg Chewable Tablet PO 08/19/24 17:08 324 mg ONCE ONE Administration Ketorolac Tromethamine 15 mg 08/19/24 17:07 08/19/24 17:22 Ketorolac 30mg/Ml Vial IV 08/19/24 17:08 15 mg ONCE ONE Administration ORDERS Category Date Time Status CXR --portable [XR chest portable] Stat Exams 08/19/24 17:07 Taken Beta HCG, Quant [HCG,Quantitative] Stat Lab 08/19/24 17:00 Completed CBC w/Auto Diff [Complete Blood Count Auto Diff] Stat Lab 08/19/24 17:00 Completed CMP [Comprehensive Metabolic Panel] Stat Lab 08/19/24 17:00 Completed HCG Qualitative, Serum Stat Lab 08/19/24 17:00 Completed Trop I [Troponin I] Stat Lab 08/19/24 17:00 Completed Troponin I Q3H Lab 08/19/24 20:15 Ordered Troponin I Q3H Lab 08/19/24 23:15 Ordered Medical Decision Narrative: This is a 44-year-old female presenting with back pain. She states that just today, she started having back pain that is behind her left shoulder. No overt chest pain. Took some Tylenol that seemed to help. Pain is not exertional, nonpositional, not associated with any other symptoms on full review of systems. Made worse with deep inspiration. Came in for further evaluation. History was obtained via conversation with patient. On arrival, patient hemodynamically stable, alert, oriented x4, appropriate, GCS 15, moving all extremities spontaneously, pupils equal and reactive to light. Full physical exam performed and significant for well-appearing female no acute distress. Lungs are clear anterior and posterior bilaterally. Cardiac exam without murmurs gallops rubs. Pulses equal and symmetric in upper and lower extremities and no lower extremity edema. Differential includes musculoskeletal pain, ACS, GA, pneumothorax, bronchitis, pneumonia, among others. Patient placed on continuous cardiac monitoring and continuous pulse ox with initial blood pressure 132/91, heart rate 85, saturation 99% on room air. Independent interpretation of EKG shows sinus rhythm 82 bpm with TX 134, QRS 86, QTc 397 and normal axis no acute ischemic changes. Patient was given aspirin and Toradol for symptomatic management and correction of underlying abnormalities. Workup independently interpreted and significant for nonactionable CBC or chemistry. Patient's glucose elevated at 133, likely undiagnosed diabetes. Troponin negative and hCG negative.. On independent interpretation of imaging, no cardiopulmonary airspace disease. See radiology read for full review of final results. Heart score 1. Patient PERC negative, D-dimer ruled out. On reevaluation, patient resting comfortably, Toradol did seem to take the edge off. Because pain started earlier today, well outside the 6-hour window, so delta troponin considered, not deemed necessary. Given patient presentation, workup, history, this most likely represents musculoskeletal chest wall pain. Because patient at baseline without signs or symptoms of clinical decompensation, deemed appropriate for discharge. Results were relayed to patient who voiced understanding and were agreeable to outpatient management and follow up. I discussed my clinical impression with patient and answered all questions. At this time, the evidence for any other entities in the differential is insufficient to warrant any further testing or ED observation. This was explained as well. Advisory was given that persistent or worsening symptoms require further evaluation. I confirmed the understanding of this discussion. 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 Electronic top cutter of the spoken language may permit errors. Although I have reviewed the note, some errors may still exist. Critical Care Critical Care Time Critical Care Time: No
--- NOTE | 2024-08-19 17:07 | XR_ITS ---
PROCEDURE INFORMATION: Exam: XR Chest Exam date and time: 08/19/2024 5:50 PM Age: 44 years old Clinical indication: Pain; Left-sided; Additional info: L sided posterior cp TECHNIQUE: Imaging protocol: Radiologic exam of the chest. Views: 1 view. COMPARISON: No relevant prior studies available. FINDINGS: Lungs: Unremarkable. No consolidation. Pleural spaces: Unremarkable. No pleural effusion. No pneumothorax. Heart/Mediastinum: Unremarkable. No cardiomegaly. Bones/joints: Unremarkable. IMPRESSION: No acute findings.
[2024-08-19 17:14] LABS: Basophils % 0.2 % (0.1-2.0); Eosinophils # 0.1 Kmm3 (0.0-0.4); Eosinophils % 1.3 % (0.1-12.0); Hematocrit 45.7 % (37.0-47.0); Hemoglobin 15.7 g/dL (12.2-16.2); Immature Granulocytes # 0.03 10^3uL; Immature Granulocytes % 0.3 %; Lymphocytes # 2.6 K/mm3 (0.7-4.5); Mean Corpuscular HGB Conc 34.4 g/dL (31.8-35.4); Mean Corpuscular Hemoglobin 33.4 pg (27.0-31.2); Mean Corpuscular Volume 97.2 fl (81-99); Mean Platelet Volume 10.5 fl (7.4-10.4); Monocytes # 0.5 K/mm3 (0.1-1.0); Monocytes % 5.1 % (1.7-9.3); Neutrophils # 5.7 K/mm3 (1.8-7.8); Neutrophils % 64.1 % (37.0-80.0); Nucleated Red Blood Cells # 0 10^3/uL; Nucleated Red Blood Cells % 0 %; Platelet Count 277 K/mm3 (142-424); Red Cell Distribution Width 12.8 % (11.5-17.5); Red Cell Distribution Width-SD 45.9 fL; White Blood Count 8.9 K/mm3 (4.8-10.8)
[2024-08-19] MEDS: ASPIRIN 81MG CHEWABLE TABLET 324 MG PO (17:21)
[2024-08-19] MEDS: KETOROLAC 30MG/ML VIAL 15 MG IV (17:22)
[2024-08-19 17:25] LABS: Alanine Aminotransferase 20 U/L (12-78); Albumin Level 4.3 g/dl (3.5-5.0); Albumin/Globulin Ratio 1.3 (1.1-1.8); Alkaline Phosphatase 67 U/L (38-126); Anion Gap 14.1 mEq/L (5-15); Aspartate Amino Transferase 26 U/L (14-36); Bilirubin,Total 0.4 mg/dl (0.2-1.3); Blood Urea Nitrogen 13 mg/dl (7-17); Calcium 10.3 mg/dl (8.4-10.2); Carbon Dioxide 27 mmol/L (22.0-30.0); Chloride 101 mmol/L (98-107); Creatinine Clearance Estimated 110 mL/min (50-200); Estimated Glomerular Filt Rate 61 ml/min (>60); GFR (African American) 74 ML/MIN (>60); Globulin 3.3 g/dL (1.3-3.2); Glucose 133 mg/dl (74-100); Potassium 4.1 mmoL/L (3.5-5.1); Sodium 138 mmol/L (136-145); Total Protein,Serum 7.6 g/dl (6.3-8.2)
[2024-08-19 17:30] VITALS: BP 121/79; PULSE 84; RESP 10; O2SAT 99
[2024-08-19 17:41] LABS: Troponin I < 0.01 ng/ml (0.00-0.034)
[2024-08-19 17:44] LABS: HCG,Quantitative < 2 mIU/ml (0-5.42)
[2024-08-19 17:51] LABS: HCG Qualitative, Serum Negative (Negative)
[2024-08-19 18:17] VITALS: BP 116/79; PULSE 79; RESP 20; TEMP 36.8; O2SAT 98
== END 2024-08-19 18:18 | disposition home or self-care (01) ==
PROVIDERS: Emergency Provider Emergency Medicine; PCP Pediatrics
DX: R07.89 Other chest pain (principal); R06.02 Shortness of breath; F17.210 Nicotine dependence, cigarettes, uncomplicated
CPT/HCPCS: 71045; 80053; 84484; 84702; 84703; 85025; 93005; 96374; 99284; J1885

== ENCOUNTER 2024-12-24 15:55 | Outpatient (CLI) | payer OTHER, SELFPAY ==
--- OUTSIDE RECORDS SUMMARY | 2024-12-24 15:58 | XMS_ITS | Data Portability ---
Author Organization [facility] Miguel Angel [employer] MUNIR Galaviz ADMIN Address [address] [place] [address] Care Team Providers Care Confectionery Laboratory Manager Name Role Phone AYAD OBO Primary Care Provider Unavailab le Assessment No assessment recorded. Plan of Treatment Reminders Order Date Submit Date Provider Last Modified By Organization Details Last Modified Time Details Appointments None recorded. Lab lipid panel, serum 2023 024 [facility], [address], [address], [place], [address], 4 06:38:03 TSH + free T4, serum 2023 024 [facility], [address], [address], [place], [address], 4 06:38:00 CBC w/ auto diff 2023 024 [facility], [address], [address], [place], [address], 4 06:38:01 CMP, serum or plasma 2023 024 [facility], [address], [address], [place], [address], 4 06:38:02 Referral None recorded. Procedures None recorded. Surgeries None recorded. Imaging MAMMO, screening, bilateral - Okay to perform an additional tests if needed. [email or web address] (Centralized Scheduling), [address], [place], [address], 4 10:21:45 Medication Orders omeprazole 20 mg capsule,de layed release 2023 024 [facility], [address] [place] [address], [facility], [place], [address], 5 15:58:45 lisinopril 5 mg tablet 2023 024 [facility], [address] [place] [address], [place] [address], [place], [address], 5 15:58:43 amoxicilli n 875 mg tablet [address], [address] [place] [address], [place], [address], 4 11:01:28 fluticason e propionate 50 mcg/actuat ion nasal spray,susp ension 2022 023 [facility], [address] [place] [address], [facility], [place], [address], 4 11:22:21 omeprazole 20 mg capsule,de layed release 2022 023 [facility], [address] [place] [address], [place] [address], [place], [address], 3 15:58:57 Patient TargetsNo targets recorded. Patient InstructionsNo instructions recorded. Reason for Referral None Reported. Results Created Date Observation Date Name Description Value Unit Range Abnormal Flag Note LastModifiedBy Organization Detail LastModifiedTime 01/03/20 24 01/04/2024 TSH+F REE T4 TSH 0.839 uIU/m L 0.450- 4.500 normal Not Available [facility] ([facility]) [address], [place], [address], 01/04/2024 06:38:00 11/12/20 24 01/04/2024 TSH+F REE T4 T4,free(dire ct) 1.11 NG/dL 0.82-1 .77 normal Not Available [facility] ([facility]) [address] [place], [address], 01/04/2024 06:38:00 01/03/20 24 01/04/2024 CBC WITH DIFFE RENTI AL/PL ATELE T WBC 9.3 x10e3 /uL 3.4-10 .8 normal Not Available [facility] ([facility]) [address] [place], [address], 01/04/2024 06:38:01 01/03/20 24 01/04/2024 CBC WITH DIFFE RENTI AL/PL ATELE T RBC 4.53 x10e6 /uL 3.77-5 .28 normal Not Available [facility] ([facility]) [address] [place], [address], 01/04/2024 06:38:01 01/03/20 24 01/04/2024 CBC WITH DIFFE RENTI AL/PL ATELE T hemoglobin 15.3 g/dL 11.1-1 5.9 normal Not Available [facility] ([facility]) [address] [place], [address], 01/04/2024 06:38:01 01/03/20 24 01/04/2024 CBC WITH DIFFE RENTI AL/PL ATELE T hematocrit 45.4 % 34.0-4 6.6 normal Not Available [facility] ([facility]) [address] [place], [address], 01/04/2024 06:38:01 01/03/20 24 01/04/2024 CBC WITH DIFFE RENTI AL/PL ATELE T MCV 100 fL 79-97 above high normal Not Available [facility] ([facility]) [address] [place], [address], 01/04/2024 06:38:01 01/03/20 24 01/04/2024 CBC WITH DIFFE RENTI AL/PL ATELE T MCH 33.8 pg 26.6-3 3.0 above high normal Not Available [facility] ([facility]) [address] [facility], [place], [address], 01/04/2024 06:38:01 01/03/20 24 01/04/2024 CBC WITH DIFFE RENTI AL/PL ATELE T MCHC 33.7 g/dL 31.5-3 5.7 normal Not Available [facility] ([facility]) [address] [place], [address], 01/04/2024 06:38:01 01/03/20 24 01/04/2024 CBC WITH DIFFE RENTI AL/PL ATELE T RDW 11.7 % 11.7-1 5.4 Not Available [facility] ([facility]) [address] [facility], [place], [address], 01/04/2024 06:38:01 01/03/20 24 01/04/2024 CBC WITH DIFFE RENTI AL/PL ATELE T platelets 272 x10e3 /uL 150-45 0 normal Not Available [facility] ([facility]) [address] [facility], [place], [address], 01/04/2024 06:38:01 01/03/20 24 01/04/2024 CBC WITH DIFFE RENTI AL/PL ATELE T neutrophils 68 % not estab. normal Not Available [facility] ([facility]) [address] [place], [address], 01/04/2024 06:38:01 01/03/20 24 01/04/2024 CBC WITH DIFFE RENTI AL/PL ATELE T lymphs 24 % not estab. normal Not Available [facility] ([facility]) [address] [place], [address], 01/04/2024 06:38:01 01/03/20 24 01/04/2024 CBC WITH DIFFE RENTI AL/PL ATELE T monocytes 6 % not estab. normal Not Available [facility] ([facility]) [address] [facility], [place], [address], 01/04/2024 06:38:01 01/03/20 24 01/04/2024 CBC WITH DIFFE RENTI AL/PL ATELE T eos 2 % not estab. normal Not Available [facility] ([facility]) [address] [place], [address], 01/04/2024 06:38:01 01/03/20 24 01/04/2024 CBC WITH DIFFE RENTI AL/PL ATELE T basos 0 % not estab. normal Not Available [facility] ([facility]) [address] [place], [address], 01/04/2024 06:38:01 01/03/20 24 01/04/2024 CBC WITH DIFFE RENTI AL/PL ATELE T immature cells PHYSICAL THERAPY SUPERVISOR Not Available [facility] ([facility]) [address] [place], [address], 01/04/2024 06:38:01 01/03/20 24 01/04/2024 CBC WITH DIFFE RENTI AL/PL ATELE T neutrophils (absolute) 6.3 x10e3 /uL 1.4-7. 0 normal Not Available [facility] ([facility]) [address] [place], [address], 01/04/2024 06:38:01 01/03/20 24 01/04/2024 CBC WITH DIFFE RENTI AL/PL ATELE T lymphs (absolute) 2.3 x10e3 /uL 0.7-3. 1 normal Not Available [facility] ([facility]) [address] [place], [address], 01/04/2024 06:38:01 01/03/20 24 01/04/2024 CBC WITH DIFFE RENTI AL/PL ATELE T monocytes(ab solute) 0.5 x10e3 /uL 0.1-0. 9 normal Not Available [facility] ([facility]) [address] [facility], [place], [address], 01/04/2024 06:38:01 01/03/20 24 01/04/2024 CBC WITH DIFFE RENTI AL/PL ATELE T eos (absolute) 0.2 x10e3 /uL 0.0-0. 4 normal Not Available [facility] ([facility]) [address] [facility], [place], [address], 01/04/2024 06:38:01 01/03/20 24 01/04/2024 CBC WITH DIFFE RENTI AL/PL ATELE T baso (absolute) 0.0 x10e3 /uL 0.0-0. 2 normal Not Available [facility] ([facility]) [address] [facility], [place], [address], 01/04/2024 06:38:01 01/03/20 24 01/04/2024 CBC WITH DIFFE RENTI AL/PL ATELE T immature granulocytes 0 % not estab. Not Available [facility] ([facility]) [address] [facility], [place], [address], 01/04/2024 06:38:01 01/03/20 24 01/04/2024 CBC WITH DIFFE RENTI AL/PL ATELE T immature grans (abs) 0.0 x10e3 /uL 0.0-0. 1 Not Available [facility] ([facility]) [address] [place], [address], 01/04/2024 06:38:01 01/03/20 24 01/04/2024 CBC WITH DIFFE RENTI AL/PL ATELE T NRBC PHYSICAL THERAPY SUPERVISOR Not Available [facility] ([facility]) [address] [place], [address], 01/04/2024 06:38:01 01/03/20 24 01/04/2024 CBC WITH DIFFE CASSIDY AL/PL ELIDIALE T hematology comments: PHYSICAL THERAPY SUPERVISOR Not Available [facility] ([facility]) [address] [facility], [place], [address], 01/04/2024 06:38:01 01/03/20 24 01/04/2024 COMP. METAB OLIC PANEL (14) glucose 98 mg/dL 70-99 normal Not Available [facility] ([facility]) [address] [facility], [place], [address], 01/04/2024 06:38:02 01/03/20 24 01/04/2024 COMP. METAB OLIC PANEL (14) BUN 8 mg/dL 6-24 normal Not Available [facility] ([facility]) [address] [facility], [place], [address], 01/04/2024 06:38:02 01/03/20 24 01/04/2024 COMP. METAB OLIC PANEL (14) creatinine 0.76 mg/dL 0.57-1 .00 normal Not Available [facility] ([facility]) [address] [facility], [place], [address], 01/04/2024 06:38:02 01/03/20 24 01/04/2024 COMP. METAB OLIC PANEL (14) BUN/creatini ne ratio 11 9-23 normal Not Available [facility] ([facility]) [address] [facility], [place], [address], 01/04/2024 06:38:02 01/03/20 24 01/04/2024 COMP. METAB OLIC PANEL (14) sodium 142 mmol/ L 134-14 4 normal Not Available [facility] ([facility]) [address] [facility], [place], [address], 01/04/2024 06:38:02 01/03/20 24 01/04/2024 COMP. METAB OLIC PANEL (14) potassium 4.8 mmol/ L 3.5-5. 2 normal Not Available [facility] ([facility]) [address] [place], [address], 01/04/2024 06:38:02 01/03/20 24 01/04/2024 COMP. METAB OLIC PANEL (14) chloride 104 mmol/ L 96-106 normal Not Available [facility] ([facility]) [address] [place], [address], 01/04/2024 06:38:02 01/03/20 24 01/04/2024 COMP. METAB OLIC PANEL (14) carbon dioxide, total 23 mmol/ L 20-29 normal Not Available [facility] ([facility]) [address] [place], [address], 01/04/2024 06:38:02 01/03/20 24 01/04/2024 COMP. METAB OLIC PANEL (14) calcium 10.1 mg/dL 8.7-10 .2 normal Not Available [facility] ([facility]) [address] [place], [address], 01/04/2024 06:38:02 01/03/20 24 01/04/2024 COMP. METAB OLIC PANEL (14) protein, total 6.8 g/dL 6.0-8. 5 normal Not Available [facility] ([facility]) [address] [place], [address], 01/04/2024 06:38:02 01/03/20 24 01/04/2024 COMP. METAB OLIC PANEL (14) albumin 4.3 g/dL 3.9-4. 9 normal Not Available [facility] ([facility]) [address] [facility] [place], [address], 01/04/2024 06:38:02 01/03/20 24 01/04/2024 COMP. METAB OLIC PANEL (14) globulin, total 2.5 g/dL 1.5-4. 5 Not Available [facility] ([facility]) [address], [place], [address], 01/04/2024 06:38:02 01/03/20 24 01/04/2024 COMP. METAB OLIC PANEL (14) bilirubin, total 0.2 mg/dL 0.0-1. 2 normal Not Available [facility] ([facility]) [address] [place], [address], 01/04/2024 06:38:02 01/03/20 24 01/04/2024 COMP. METAB OLIC PANEL (14) alkaline phosphatase 86 IU/L 44-121 normal Not Available [facility]) [address] [place], [address], 01/04/2024 06:38:02 01/03/20 24 01/04/2024 COMP. METAB OLIC PANEL (14) AST (SGOT) 15 IU/L 0-40 normal Not Available [facility] ([facility]) [address] [facility], [place], [address], 01/04/2024 06:38:02 01/03/20 24 01/04/2024 COMP. METAB OLIC PANEL (14) ALT (SGPT) 16 IU/L 0-32 normal Not Available [facility] ([facility]) [address] [facility] [place], [address], 01/04/2024 06:38:02 01/03/20 24 01/04/2024 LIPID PANEL cholesterol, total 150 mg/dL 100-19 9 normal Not Available [facility] ([facility]) [address] [facility] [place], [address], 01/04/2024 06:38:03 01/03/20 24 01/04/2024 LIPID PANEL triglyceride s 111 mg/dL 0-149 normal Not Available [facility] ([facility]) [address] [facility] [place], [address], 01/04/2024 06:38:03 11/12/20 24 01/04/2024 LIPID PANEL HDL cholesterol 36 mg/dL >39 below low normal Not Available [facility] ([facility]) [address] [facility], [place], [address], 01/04/2024 06:38:03 01/03/20 24 01/04/2024 LIPID PANEL VLDL cholesterol celine 20 mg/dL 5-40 Not Available [facility] ([facility]) [address] [facility], [place], [address], 01/04/2024 06:38:03 01/03/20 24 01/04/2024 LIPID PANEL LDL chol calc ([facility]) 94 mg/dL 0-99 Not Available [facility]) [address] [facility], [place], [address], 01/04/2024 06:38:03 01/03/20 24 01/04/2024 LIPID PANEL LDL calc comment: PHYSICAL THERAPY SUPERVISOR Not Available [facility] ([facility]) [address] [facility], [place], [address], 01/04/2024 06:38:03 08/20/19 25 08/19/2024 XR, chest , 2 view No observ ation record ed. [email or web address], [place], [address], 08/23/2024 11:00:41 08/20/19 25 08/19/2024 elect justin hanna am No observ ation record ed. [email or web address], [place], [place], [address], 08/23/2024 11:04:24 Result Notes None recorded. Problems Name Problem SNOMED Code Status Onset Date Resolution Date Notes Provider Name and Address Organization Details Recorded Time Gastroesophag eal reflux disease without esophagitis 886993751 Active 2022 Ayad Boo MD [address] , [place], [address] , [facility] & [place] 3 10:45:39 Essential hypertension 41769226 Active 2023 Ayad Boo MD [address] [facility], [place], [address] , [place] [facility] & [place] 4 11:33:10 Problem Notes None recorded. Procedures Surgical History Date Name Laterality Status Provider Name and Address Organization Details Recorded Time 02/21/19 16 Abdominal Surgery completed Farrah Mooree [place] - [facility] & [place] 03/29/2022 10:09:04 10/21/19 15 Date of Last Pap Smear completed Farrah Teresa [place] - [facility] & [place] 03/29/2022 10:09:03 02/21/19 01 Abdominal Surgery completed [facility] Teresae [place] - [facility] & [place] 03/29/2022 10:09:04 02/21/18 91 Appendectomy completed [facility] [place] [facility] & [place] 03/29/2022 10:09:04 Imaging Results None recorded. Procedure Notes None recorded. Medical Equipment None Reported. Allergies Allergen ID Allergen Name Allergen Category Reaction Reaction Severity Criticality Documentation Date Start Date Code Code System Note Provider Name and Address Organization Details Recorded Time 25908 codeine medicatio n nausea mild Not available 03/29/2022 2670 RxNorm Farrah Sunudlette null, [place] [facility] & [place] 3 10:09:03 64404 erythromy rayray medicatio n rash respirato ry distress mild moderate Not available 03/29/2022 4053 RxNorm Farrah Sunudlette null, [place] - [facility] & [place] 3 10:09:03 07896 cultivate d mushroom extract food,medi cation anaphylax is hives severe severe Not available 03/29/2022 08407 17 RxNorm Farrah Sunudlette null, [place] [facility] & [place] 3 10:09:03 Medications Name Sig Start Date [...] propionate 50 mcg/actuat ion nasal spray,susp ension Antelope 1 spray every day by intranasa l [...] Address Organization Details Last Updated DateTime 03/29/2022 644655.7 g 96.9 [degF] Farrah GÓMEZ - [facility] - [facility] 03/29/2022 10:11:31 Date Recorded Body weight Body temperature Heart rate Systolic And Diastolic Provider Name and Address Organization Details Last Updated DateTime 01/03/2024 44848.02 g 97.6 [degF] 82 /min 141/96 mm[Hg] Fabiola Santos [facility] & [place] 01/03/2024 11:06:43 Social History Question Answer Notes LastModified by Organizat ion Details LastModified Time Tobacco Smoking Status Current Every Day Smoker Farrah babcock, [facility] & [place] 03/29/2022 10:09:04 Are You Blind Or Do You Have Difficulty Seeing? Yes Information not available 03/29/2022 What Was The Date Of Your Most Recent Tobacco Screening? 01/02/2024 [email or web address] Information not available 03/04/2024 What Is Your Current Pack Years? 20-29packyea rs [email or web address] Information not available 03/04/2024 Are You Passively Exposed To Smoke? Yes Information not available 03/29/2022 How Much Tobacco Do You Smoke? 1 PPD Information not available 03/29/2022 How Many Years Have You Smoked Tobacco? 21 [email or web address] Information not available 03/04/2024 Sex: Unknown Functional Status Question Answer Note LastModified by Organizat ion Details LastModified Time Do you use any illicit or recreational drugs? No Information not available 03/29/2022 What is your level of alcohol consumption? Occasional Information not available 03/04/2024 Do you or have you ever used smokeless tobacco? Never used smokeless tobacco Information not available 03/29/2022 What is your exercise level? Occasional Information not available 03/29/2022 Mental Status Question Answer Note LastModified by Organization D etails LastModified Time Do you feel stressed (tense, restless, nervous, or anxious, or unable to sleep at night)? [id number] [email or web address] Information not available 03/04/2024 Family History Relationship [...] available 03/29/2022 08:23:48 Medical History Condition Response Ear or Hearing Problems Y GI Problems Y Spine Problems Y Obesity Y Vision or Eye Problems Y Arthritis Y Back Problems Y Reflux/GERD Y Headaches Y Gynecological History Statement/Question Response Abnormal Pap N Flow Heavy Date of LMP 12/22/2023 Sexually Active? Y Menses Monthly N Duration of Flow (days) 4 Date of Last Pap Smear 10/20/2014 Current Control Method Tubal Ligat ion Age at Menarche 43 Obstetrics History GPAL:G 0 P 0 0 0 0 Immunizations Vaccine Type Date Status Note Provider Nam e and Address Organization Details Recorded Time COVID-19, mRNA, LNP-S, PF, 30 mcg/0.3 mL dose 1 completed Jaa Kierra null, [place] - [facility] - [place] & [place] 11/24/2023 18:21:36 Tdap 7 completed Jaa Kierra null, [place] [facility] [place] & [place] 11/24/2023 18:21:36 Influenza, split virus, trivalent, preservative 9 completed Jaa Kierra null, [place] [facility] [place] & [place] 11/24/2023 18:21:36 Influenza, split virus, trivalent, preservative 1 completed Jaa Kierra null, [place] [facility] [place] & [place] 11/24/2023 18:21:36 Td (adult), 2 Lf tetanus toxoid, preservative free, adsorbed 8 completed Jaa Kierra null, [place] [facility] [place] [facility] [place] 11/24/2023 18:21:36 Hep B, adolescent/high risk 8 completed Jaa Kierra null, [place] - [facility] 11/24/2023 18:21:36 Past Encounters Encounter ID Performer Location Encounter Start Date Encounter Closed Date Diagnosis/Indication Diagnosis SNOMED-CT Code Diagnosis ICD10 Code Diagnosis IMO Codes Diagnosis Note [id number] MD Remy Ospina and JACE gayle [address] [place] [id number] 03/29/2022 10:06:21 03/29/2022 10:44:23 Acute sinusitis 37304602 J01.90 Tylenol/Mo jaiden p.r.n. fever. Push p.o. fluid intake. Patient to call if symptoms worsen. Gastroesop hageal reflux disease without esophagitis 470945760 K21.9 [id number] MD Remy Ospina and JACE gayle [address] [place] [id number] 01/03/2024 10:49:57 01/03/2024 11:49:01 Adult health examination 854046896 Z00.00 Gastroesop hageal reflux disease without esophagitis 645652482 K21.9 Essential hypertension 88259150 I10 Hyperlipid emia screening 795331968 Z13.220 Screening mammography 24 013704 Z12.31 Health Concerns Section Related Observation LastModified by Organization Detai ls LastModified Time None Recorded Concern Status LastModified by Organization Details LastModified Time None Recorded Advance Directives Directive None Recorded Payers Insurance Date Sequence Insurance Name Policy Number Policy Petit Covered Member ID Petit Member ID Guarantor Name 12/17/2024 1 AESUNITA [facility] (MEDICAID HMO) Farrah Solares [id number] Farrah Solraes 06/25/2024 SLIDING FEE SCHEDULE - DISCOUNT Farrah [...] for it if possible. Ayad Boo MD [address], [place], [address], [facility] & [place] 03/29/2022 10:47:48 01/03/2024 text/html Here for annual [...] disease in her father. Ayad Boo MD [address], [place], [address], [facility] & [place] 01/03/2024 20:28:03 OBGyn Episode No OBEpisode recorded.
--- OUTSIDE RECORDS SUMMARY | 2024-12-24 15:58 | XMS_ITS | Clinical Summary ---
Author Organization [facility] Address [address] [place] [address] Care Team Providers Care Beater And Pulper Feeder Name Role Phone Unavailable Primary Care Provider Unavailabl e Social History Tobacco Use Types Packs/Day Years Used Date Smoking Tobacco: Never Assessed Abuse Screen Answer Date Recorded Unsafe at Home or Work/School Not on file Feels Threatened by Someone? Not on file 11/2022 Does Anyone Keep You from Co ntacting Others or Doint Things Outside the Home? Not on file 11/30/2022 Physical Sign of Abuse Present Not on file 1 Housing Stability Answer Date Recorded Current Living Arrangements Not on file 11/21 Potentially Unsafe Housing Conditions Not on silvia e 11/30/2022 Family and Community Support Answer Pavan e Recorded Help with Day-to-Day Activities Not on file 11/30/2022 Lonely or Isolated Not on file 11/30/2022 Employment Answer Date Recorded Do you want help finding or keeping work or a anni b? Not on file 11/30/2022 Disabilities Answer Date Recorded Concentrating, Remembering, or Making Decisions Difficulty Not on file 11/30/2022 Doing Errands Independently Difficulty Not on fi le 11/30/2022 Education Answer Date Recorded Help with school or training? Not on file Preferred Language Not on file 11/30/2022 Comments Unknown Sex and Gender Information Value Date Recorded Sex Assigned at Not on file Legal Sex Female 1:41 PM EDT Gender Identity Not on file Sexual Orientation Not on file Plan of Treatment Health Maintenance Due Date Last Done Comments ANNUAL PHYSICAL 1982 Annual Gynecologic Pelvic an d Breast Exam 1982 HEPATITIS C SCREENING 1982 TDAP/TD VACCINES (1 - Tdap) 2001 MAMMOGRAM 2022 INFLUENZA VACCINE 09/21/2024 Pneumococcal Vaccine 0-49 Aged Out No longer eligible based on patient's age to complete this topic
--- OUTSIDE RECORDS SUMMARY | 2024-12-24 15:58 | XMS_ITS | Clinical Summary ---
Author Organization [facility] Address [address] [place] [address] Care Team Providers Care Buzzsaw Operator Helper Name Role Phone Zaki Louise Renetta Primary Care Provider [phone] Allergies Active Allergy Reactions Criticality Noted Date [...] Date Smoking Tobacco: Every Day Cigarettes 1 26.8 Started: 1998 Smokeless Tobacco: Never Tobacco Cessation:Ready [...] Date Last Done Comments [facility]-Depression Screening 1982 [facility]-Infant/Child/Adol SDOH Screenings 1982 [facility]-Varicella Vaccines (1 of 2 - 13+ 2-dose series) 1995 [facility]-Hepatitis B Vaccines (2 of 3 - 3-dose series) 10/30/1997 10/02/1997 [facility]- SDOH Screenings 2000 [facility]-Adult SDOH Screenings 2000 [facility]-Pap Smear 05/27/2003 05/26/2000 HPV Vaccines (1 - 3-dose SCDM series) 2009 [facility]-Cervical Cancer Screening 2012 [facility]-HPV/Cotest 2012 05/26/2000 XAZ-PGRSD-09 Vaccine (2 - 2024- season) 2024 12/16/2020 [facility]-Influenza Vaccine (#1) 2024 12/24/2010, [facility]-DTaP,Tdap,and Td Vaccines (3 - Td or Tdap) 08/14/2026 08/14/2016, 10/02/1997 [facility]-Zoster Vaccines (1 of 2) 2032 [facility]-HIV Screening Completed 09/01/2021, , 03/14/2020, Additional history exists [facility]-Hepatitis C Screening Completed 2021, 08/13/2020, 03/14/2020, Additional history exists [facility]-HIB Vaccines Aged Out No longer e [...] Antibody/Antigen Screen (09/01/2021 3:27 PM EDT) Pathologist [facility] HIV 1 & 2 Antibody/Anti gen Screen Nonreactive Nonreactive 09/01/2021 5:47 PM EDT [facility] Blood Venous blood specimen / Unknown Venipuncture / Unknown 09/01/2021 3:27 PM EDT 09/01/2021 4:20 PM EDT us Bran Yi MD LAB BLOOD ORDERABLES Final Result Performing Organization Address City/[facility] Co de Phone Number HEALTHCARE LAB [address] [place] [address] * Hepatitis C Antibody - ED (09/01/2021 3:27 PM EDT) Hepatitis C Antibody Negative Negative 09/01/2021 5:46 PM EDT HEALTHCARE LAB Blood Venous blood specimen / Unknown Venipuncture / Unknown 09/01/2021 3:27 PM EDT 09/01/2021 4:20 PM EDT us Bran Yi MD LAB BLOOD ORDERABLES Final Result Performing Organization Address [facility] Co de Phone Number HEALTHCARE LAB [address] [place] [address] * (ABNORMAL) Cytology (05/26/2000 12:00 AM EDT) 05/26/2000 05/27/2000 8:4 7 AM EDT Narrative [facility] - 06/07/2000 10:14 AM EDT [facility] MR #: [id number] [facility] [address], [place] [address] 1980 (Age: 20) FW Collect Date: 05/26/2000 00:00 Receipt Date: 05/27/2000 08:47 Page 1 DEPARTMENT OF PATHOLOGY AND LABORATORY MEDICINE CYTOPATHOLOGY REPORT Email: [email or web address] ATTENDING MD/Practitioner: Nancie Campos MD Service: CWO Location: [facility] Reported: 06/07/2000 10:14 Collected: 05/26/2000 00:00 INTERPRETATION [...] results is suggested (please call Microbiology at [phone] for results). CLINICAL INFORMATION: Menstrual History: Date of Last Menstrual Period: {Not Provided} Contraceptive History: Depo SPECIMEN DESCRIPTION: A: CERVICAL/VAGINAL PAP SMEAR SMEARS: PAP STAIN ICD: 795.0 ABNORMAL PAP SMEAR CERVIX, NONSPECIFIC V24.2 ROUTINE FOLLOW-UP F: A; 83819 SCREEN, 88268 C\V (PO) SNOMED CODES: A; [id number] [id number] M- [id number] In cases where a pathologist has signed out the report, the service has been rendered in part by a resident. The signing pathologist has performed and is responsible for the reported pathologic evaluation. us Historical Provider LAB PATHOLOGY ORDERABLES Fin al Result [facility] from Last 3 Months or Most Recently Relevant to Health Maintenance Insurance [employer] [facility] MEDICAID Advance Directives * Full Code (Latest Code Status on File) Date Activated Date Inactivated Comments 08/13/2020 2:06 AM 08/13/2020 7:52 PM Question Answer Comments Patient has decision-making capacity? Yes Care Teams Buzzsaw Operator Helper Relationship Specialty Start Date End Date Zaki Louise [address] [place] [address] PCP - General 10/15/21
--- OUTSIDE RECORDS SUMMARY | 2024-12-24 15:58 | XMS_ITS | Encounter Summary ---
Author Organization Healthcare Address [address] [place] [address] Care Team Providers Care Watch Dial Maker Name Role Phone None, None Primary Care Provider [phone] Zaki Louise Primary Care Provider [phone] Encounter Details Date Type Department Care Team (Late st Contact Info) Description 08/13/2020 Ophth Exam [facility] [address] [place] [address] Serg Henderson, Social History Tobacco [...] Month) No 021 8:03 AM EDT Dulce Benavides RN 2. Non-Specific Active Suici justo Thoughts [...] documented as of this encounter Care Teams Watch Dial Maker Relationship Specialty Start Date End Date None, None [address] [place] [address] PCP - General 08/12/20 10/14/21 Zaki Louise [address] [place] [address] PCP - General 10/15/21 documented as of this encounter
--- OUTSIDE RECORDS SUMMARY | 2024-12-24 15:59 | XMS_ITS | Encounter Summary ---
Author Organization Healthcare Address [address] [place] [address] Care Team Providers Care Trade Show Specialist Name Role Phone None, None Primary Care Provider [phone] Zaki Louise Primary Care Provider [phone] Encounter Details Date Type Department Care Team (Late st Contact Info) Description 09/01/2021 Ophth Exam [facility] [address] [place] [address] Fei Luna MD [address] [address] Social History Tobacco Use Types [...] Risk Indicated 09/01/2021 5:10 PM EDT Mariama Gutirerez RN * Question Answer Date of Assessment [...] documented as of this encounter Care Teams Trade Show Specialist Relationship Specialty Start Date End Date None, None [address] [place] [address] PCP - General 08/12/20 10/14/21 Zaki Louise [address] [place] [address] PCP - General 10/15/21 documented as of this encounter
--- NOTE | 2024-12-24 16:16 | XR_ITS ---
PROCEDURE INFORMATION: Exam: XR Left Ankle Exam date and time: 12/24/2024 4:17 PM Age: 44 years old Clinical indication: Pain; Ankle; Left; Additional info: Left ankle injury TECHNIQUE: Imaging protocol: Radiologic exam of the left ankle. Views: 3 or more views. COMPARISON: CR XR FOOT LT 2V 12/24/2024 4:17 PM FINDINGS: Bones/joints: Normal. Soft tissues: Normal. IMPRESSION: No acute findings.
--- NOTE | 2024-12-24 16:16 | XR_ITS ---
PROCEDURE INFORMATION: Exam: XR Left Foot Exam date and time: 12/24/2024 4:17 PM Age: 44 years old Clinical indication: Pain; Foot; Left; Additional info: Toe numbness, ankle injury TECHNIQUE: Imaging protocol: Radiologic exam of the left foot. Views: 1 or 2 views. COMPARISON: CR XR ANKLE LT MIN 3V 12/24/2024 4:17 PM FINDINGS: Bones/joints: Normal. Soft tissues: Normal. IMPRESSION: No acute findings.
[2024-12-24 16:22] LABS: Hematocrit 44.2 % (37.0-47.0); Hemoglobin 15.3 g/dL (12.2-16.2); Immature Granulocytes % 0.1 %; Mean Corpuscular HGB Conc 34.6 g/dL (31.8-35.4); Mean Corpuscular Hemoglobin 33.8 pg (27.0-31.2); Mean Corpuscular Volume 97.6 fl (81-99); Nucleated Red Blood Cells % 0 %; Platelet Count 269 K/mm3 (142-424); Red Blood Count 4.53 M/mm3 (4.20-5.40); Red Cell Distribution Width-SD 43.6 fL; White Blood Count 8.7 K/mm3 (4.8-10.8)
[2024-12-24 16:56] LABS: Alanine Aminotransferase 21 U/L (12-78); Albumin Level 4.2 g/dl (3.5-5.0); Albumin/Globulin Ratio 1.4 (1.1-1.8); Alkaline Phosphatase 77 U/L (38-126); Anion Gap 9.4 mEq/L (5-15); Aspartate Amino Transferase 20 U/L (14-36); Bilirubin,Total 0.3 mg/dl (0.2-1.3); Blood Urea Nitrogen 12 mg/dl (7-17); Calcium 9.3 mg/dl (8.4-10.2); Carbon Dioxide 24 mmol/L (22.0-30.0); Chloride 107 mmol/L (98-107); Cholesterol 168 mg/dl (140-200); Creatinine,Serum 0.80 mg/dl (0.52-1.04); Estimated Glomerular Filt Rate 79 ml/min (>60); GFR (African American) 95 ML/MIN (>60); Globulin 3.0 g/dL (1.3-3.2); Glucose 106 mg/dl (74-100); HDL Cholesterol 36 mg/dl (40-60); Potassium 4.4 mmoL/L (3.5-5.1); Sodium 136 mmol/L (136-145); Total Protein,Serum 7.2 g/dl (6.3-8.2)
[2024-12-24 16:57] LABS: Triglycerides 432 mg/dl (30-150)
[2024-12-24 17:07] LABS: C-Reactive Protein 3.6 mg/L (0-4)
[2024-12-24 17:27] LABS: Thyroid Stimulating Hormone 0.75 uIU/mL (0.465-4.68)
[2024-12-24 18:49] LABS: Hepatitis C Ab Qual. W/ RFX NEGATIVE (Negative)
[2024-12-24 19:05] LABS: Hemoglobin A1C 5.0 % (4.0-6.0)
[2024-12-25 11:12] LABS: Antinuclear Antibodies (ANA) Negative (Negative)
[2024-12-25 16:12] LABS: Deamidated Gliadin Abs, IgA 5 units (0-19); Deamidated Gliadin Abs, IgG 2 units (0-19)
== END 2024-12-24 23:59 | disposition home or self-care (01) ==
LOC: LAB 15:56
PROVIDERS: PCP Nurse Practitioner Family; Visit Provider Nurse Practitioner Family
DX: S99.912A Unspecified injury of left ankle, initial encounter (principal); H46.9 Unspecified optic neuritis; Z11.4 Encounter for screening for human immunodeficiency virus [HIV]; Z11.59 Encounter for screening for other viral diseases; K21.9 Gastro-esophageal reflux disease without esophagitis; I10 Essential (primary) hypertension; R73.9 Hyperglycemia, unspecified; R20.0 Anesthesia of skin; W57.XXXA Bitten or stung by nonvenomous insect and other nonvenomous arthropods, initial encounter
CPT/HCPCS: 36415; 73610; 73620; 80053; 80061; 82785; 83036; 84443; 85025; 86003; 86008; 86140; 86231; 86258; 86364; 86803; 87389; 87476

== ENCOUNTER 2024-12-27 08:03 | Outpatient (CLI) | payer OTHER, SELFPAY ==
--- OUTSIDE RECORDS SUMMARY | 2024-12-27 08:06 | XMS_ITS | Data Portability ---
Author Organization [facility] Miguel Angel & MUNIR Galaviz ADMIN Address [address] [place] [id number] Care Team Providers Care Security Field Supervisor Name Role Phone AYAD BOO Primary Care Provider Unavailab le Assessment No assessment recorded. Plan of Treatment Reminders Order Date Submit Date Provider Last Modified By Organization Details Last Modified Time Details Appointments None recorded. Lab lipid panel, serum 2023 024 [place] [facility], [address], [address], [place], [address], 4 06:38:03 TSH + free T4, serum 2023 024 [place] [facility], [address], [address], [place], [address], 4 06:38:00 CBC w/ auto diff 2023 024 [place] [facility], [address], [address], [place], [address], 4 06:38:01 CMP, serum or plasma 2023 024 [place] [facility], [address], [address], [place], [address], 4 06:38:02 Referral None recorded. Procedures None recorded. Surgeries None recorded. Imaging MAMMO, screening, bilateral - Okay to perform an additional tests if needed. [email or web address] (Centralized Scheduling), [address], [place], [address], 4 10:21:45 Medication Orders omeprazole 20 mg capsule,de layed release 2023 024 [facility], [address] [place] [address], [facility], [place], [address], 5 15:58:45 lisinopril 5 mg tablet 2023 024 [facility], [address] [place] [address], [address] [place] [address], [place], [address], 5 15:58:43 amoxicilli n 875 mg tablet [address], [address] [place] [address], [place], [address], 4 11:01:28 fluticason e propionate 50 mcg/actuat ion nasal spray,susp ension 2022 023 [facility], [address] [place] [address], [facility], [place], [address], 4 11:22:21 omeprazole 20 mg capsule,de layed release 2022 023 [facility], [address] [place] [address], [place] [address], [place], [address], 3 15:58:57 Patient TargetsNo targets recorded. Patient InstructionsNo instructions recorded. Reason for Referral None Reported. Results Created Date Observation Date Name Description Value Unit Range Abnormal Flag Note LastModifiedBy Organization Detail LastModifiedTime 01/03/20 24 01/04/2024 TSH+F REE T4 TSH 0.839 uIU/m L 0.450- 4.500 normal Not Available [facility] ([facility]) [address], [place], [address], 01/04/2024 06:38:00 11/12/20 24 01/04/2024 TSH+F REE T4 T4,free(dire ct) 1.11 NG/dL 0.82-1 .77 normal Not Available [facility] ([facility]) [address] [place], [address], 01/04/2024 06:38:00 01/03/20 24 01/04/2024 CBC WITH DIFFE RENTI AL/PL ATELE T WBC 9.3 x10e3 /uL 3.4-10 .8 normal Not Available [facility] ([facility]) [address] [place], [address], 01/04/2024 06:38:01 01/03/20 24 01/04/2024 CBC WITH DIFFE RENTI AL/PL ATELE T RBC 4.53 x10e6 /uL 3.77-5 .28 normal Not Available [facility] ([facility]) [address] [place], [address], 01/04/2024 06:38:01 01/03/20 24 01/04/2024 CBC WITH DIFFE RENTI AL/PL ATELE T hemoglobin 15.3 g/dL 11.1-1 5.9 normal Not Available [facility] ([facility]) [address] [place], [address], 01/04/2024 06:38:01 01/03/20 24 01/04/2024 CBC WITH DIFFE RENTI AL/PL ATELE T hematocrit 45.4 % 34.0-4 6.6 normal Not Available [facility] ([facility]) [address] [place], [address], 01/04/2024 06:38:01 01/03/20 24 01/04/2024 CBC WITH DIFFE RENTI AL/PL ATELE T MCV 100 fL 79-97 above high normal Not Available [facility] ([facility]) [address] [place], [address], 01/04/2024 06:38:01 01/03/20 24 01/04/2024 CBC WITH DIFFE RENTI AL/PL ATELE T MCH 33.8 pg 26.6-3 3.0 above high normal Not Available [facility] ([facility]) [address] [facility], [place], [address], 01/04/2024 06:38:01 01/03/20 24 01/04/2024 CBC WITH DIFFE RENTI AL/PL ATELE T MCHC 33.7 g/dL 31.5-3 5.7 normal Not Available [facility] ([facility]) [address] [place], [address], 01/04/2024 06:38:01 01/03/20 24 01/04/2024 CBC WITH DIFFE RENTI AL/PL ATELE T RDW 11.7 % 11.7-1 5.4 Not Available [facility] ([facility]) [address] [facility], [place], [address], 01/04/2024 06:38:01 01/03/20 24 01/04/2024 CBC WITH DIFFE RENTI AL/PL ATELE T platelets 272 x10e3 /uL 150-45 0 normal Not Available [facility] ([facility]) [address] [facility], [place], [address], 01/04/2024 06:38:01 01/03/20 24 01/04/2024 CBC WITH DIFFE RENTI AL/PL ATELE T neutrophils 68 % not estab. normal Not Available [facility] ([facility]) [address] [place], [address], 01/04/2024 06:38:01 01/03/20 24 01/04/2024 CBC WITH DIFFE RENTI AL/PL ATELE T lymphs 24 % not estab. normal Not Available [facility] ([facility]) [address] [place], [address], 01/04/2024 06:38:01 01/03/20 24 01/04/2024 CBC WITH DIFFE RENTI AL/PL ATELE T monocytes 6 % not estab. normal Not Available [facility] ([facility]) [address] [facility], [place], [address], 01/04/2024 06:38:01 01/03/20 24 01/04/2024 CBC WITH DIFFE RENTI AL/PL ATELE T eos 2 % not estab. normal Not Available [facility] ([facility]) [address] [place], [address], 01/04/2024 06:38:01 01/03/20 24 01/04/2024 CBC WITH DIFFE RENTI AL/PL ATELE T basos 0 % not estab. normal Not Available [facility] ([facility]) [address] [place], [address], 01/04/2024 06:38:01 01/03/20 24 01/04/2024 CBC WITH DIFFE RENTI AL/PL ATELE T immature cells SENIOR MANAGER Not Available [facility] ([facility]) [address] [place], [address], 01/04/2024 06:38:01 01/03/20 24 01/04/2024 CBC WITH DIFFE RENTI AL/PL ATELE T neutrophils (absolute) 6.3 x10e3 /uL 1.4-7. 0 normal Not Available [facility] ([facility]) [address] [place], [address], 01/04/2024 06:38:01 01/03/20 24 01/04/2024 CBC WITH DIFFE RENTI AL/PL ATELE T lymphs (absolute) 2.3 x10e3 /uL 0.7-3. 1 normal Not Available [facility] ([facility]) [address] [place], [address], 01/04/2024 06:38:01 01/03/20 24 01/04/2024 CBC WITH DIFFE RENTI AL/PL ATELE T monocytes(ab solute) 0.5 x10e3 /uL 0.1-0. 9 normal Not Available [facility] ([facility]) [address] [facility], [place], [address], 01/04/2024 06:38:01 01/03/20 24 01/04/2024 CBC WITH DIFFE RENTI AL/PL ATELE T eos (absolute) 0.2 x10e3 /uL 0.0-0. 4 normal Not Available [facility] ([facility]) [address] [facility], [place], [address], 01/04/2024 06:38:01 01/03/20 24 01/04/2024 CBC WITH DIFFE RENTI AL/PL ATELE T baso (absolute) 0.0 x10e3 /uL 0.0-0. 2 normal Not Available [facility] ([facility]) [address] [facility], [place], [address], 01/04/2024 06:38:01 01/03/20 24 01/04/2024 CBC WITH DIFFE RENTI AL/PL ATELE T immature granulocytes 0 % not estab. Not Available [facility] ([facility]) [address] [facility], [place], [address], 01/04/2024 06:38:01 01/03/20 24 01/04/2024 CBC WITH DIFFE RENTI AL/PL ATELE T immature grans (abs) 0.0 x10e3 /uL 0.0-0. 1 Not Available [facility] ([facility]) [address] [place], [address], 01/04/2024 06:38:01 01/03/20 24 01/04/2024 CBC WITH DIFFE RENTI AL/PL ATELE T NRBC SENIOR MANAGER Not Available [facility] ([facility]) [address] [place], [address], 01/04/2024 06:38:01 01/03/20 24 01/04/2024 CBC WITH DIFFE CASSIDY AL/PL ELIDIALE T hematology comments: SENIOR MANAGER Not Available [facility] ([facility]) [address] [facility], [place], [address], 01/04/2024 06:38:01 01/03/20 24 01/04/2024 COMP. METAB OLIC PANEL (14) glucose 98 mg/dL 70-99 normal Not Available [facility] ([facility]) [address] [facility], [place], [address], 01/04/2024 06:38:02 01/03/20 24 01/04/2024 COMP. METAB OLIC PANEL (14) BUN 8 mg/dL 6-24 normal Not Available [facility] ([facility]) [address] [facility], [place], [address], 01/04/2024 06:38:02 01/03/20 24 01/04/2024 COMP. METAB OLIC PANEL (14) creatinine 0.76 mg/dL 0.57-1 .00 normal Not Available [facility] ([facility]) [address] [facility], [place], [address], 01/04/2024 06:38:02 01/03/20 24 01/04/2024 COMP. METAB OLIC PANEL (14) BUN/creatini ne ratio 11 9-23 normal Not Available [facility] ([facility]) [address] [facility], [place], [address], 01/04/2024 06:38:02 01/03/20 24 01/04/2024 COMP. METAB OLIC PANEL (14) sodium 142 mmol/ L 134-14 4 normal Not Available [facility] ([facility]) [address] [facility], [place], [address], 01/04/2024 06:38:02 01/03/20 24 01/04/2024 COMP. METAB OLIC PANEL (14) potassium 4.8 mmol/ L 3.5-5. 2 normal Not Available [facility] ([facility]) [address] [place], [address], 01/04/2024 06:38:02 01/03/20 24 01/04/2024 COMP. METAB OLIC PANEL (14) chloride 104 mmol/ L 96-106 normal Not Available [facility] ([facility]) [address] [place], [address], 01/04/2024 06:38:02 01/03/20 24 01/04/2024 COMP. METAB OLIC PANEL (14) carbon dioxide, total 23 mmol/ L 20-29 normal Not Available [facility] ([facility]) [address] [place], [address], 01/04/2024 06:38:02 01/03/20 24 01/04/2024 COMP. METAB OLIC PANEL (14) calcium 10.1 mg/dL 8.7-10 .2 normal Not Available [facility] ([facility]) [address] [place], [address], 01/04/2024 06:38:02 01/03/20 24 01/04/2024 COMP. METAB OLIC PANEL (14) protein, total 6.8 g/dL 6.0-8. 5 normal Not Available [facility] ([facility]) [address] [place], [address], 01/04/2024 06:38:02 01/03/20 24 01/04/2024 COMP. METAB OLIC PANEL (14) albumin 4.3 g/dL 3.9-4. 9 normal Not Available [facility] ([facility]) [address] [facility] [place], [address], 01/04/2024 06:38:02 01/03/20 24 01/04/2024 COMP. METAB OLIC PANEL (14) globulin, total 2.5 g/dL 1.5-4. 5 Not Available [facility] ([facility]) [address], [place], [address], 01/04/2024 06:38:02 01/03/20 24 01/04/2024 COMP. METAB OLIC PANEL (14) bilirubin, total 0.2 mg/dL 0.0-1. 2 normal Not Available [facility] ([facility]) [address] [place], [address], 01/04/2024 06:38:02 01/03/20 24 01/04/2024 COMP. METAB OLIC PANEL (14) alkaline phosphatase 86 IU/L 44-121 normal Not Available [facility] ([facility]) [address] [place], [address], 01/04/2024 06:38:02 01/03/20 24 01/04/2024 COMP. METAB OLIC PANEL (14) AST (SGOT) 15 IU/L 0-40 normal Not Available [facility] ([facility]) [address] [facility], [place], [address], 01/04/2024 06:38:02 01/03/20 24 01/04/2024 COMP. METAB OLIC PANEL (14) ALT (SGPT) 16 IU/L 0-32 normal Not Available [facility] ([facility]) [address] [facility] [place], [address], 01/04/2024 06:38:02 01/03/20 24 01/04/2024 LIPID PANEL cholesterol, total 150 mg/dL 100-19 9 normal Not Available [facility] ([facility]) [address] [facility] [place], [address], 01/04/2024 06:38:03 01/03/20 24 01/04/2024 LIPID PANEL triglyceride s 111 mg/dL 0-149 normal Not Available [facility] ([facility]) [address] [facility] [place], [address], 01/04/2024 06:38:03 11/12/20 24 01/04/2024 LIPID PANEL HDL cholesterol 36 mg/dL >39 below low normal Not Available [facility] ([facility]) [address] [facility], [place], [address], 01/04/2024 06:38:03 01/03/20 24 01/04/2024 LIPID PANEL VLDL cholesterol celine 20 mg/dL 5-40 Not Available [facility] ([facility]) [address] [facility], [place], [address], 01/04/2024 06:38:03 01/03/20 24 01/04/2024 LIPID PANEL LDL chol calc ([facility]) 94 mg/dL 0-99 Not Available [facility]) [address] [facility], [place], [address], 01/04/2024 06:38:03 01/03/20 24 01/04/2024 LIPID PANEL LDL calc comment: SENIOR MANAGER Not Available [facility] ([facility]) [address] [facility], [place], [address], 01/04/2024 06:38:03 08/20/19 25 08/19/2024 XR, chest , 2 view No observ ation record ed. [email or web address], [place], [address], 08/23/2024 11:00:41 08/20/19 25 08/19/2024 elect justin hanna am No observ ation record ed. [email or web address], [place], [place], [address], 08/23/2024 11:04:24 Result Notes None recorded. Problems Name Problem SNOMED Code Status Onset Date Resolution Date Notes Provider Name and Address Organization Details Recorded Time Gastroesophag eal reflux disease without esophagitis 487217359 Active 2022 Ayad Boo MD [address] , [place], [address] , [facility] & [place] 3 10:45:39 Essential hypertension 21112309 Active 2023 Ayad Boo MD [address] [facility], [place], [address] , [place] [facility] & [place] 4 11:33:10 Problem Notes None recorded. Procedures Surgical History Date Name Laterality Status Provider Name and Address Organization Details Recorded Time 02/21/19 16 Abdominal Surgery completed Farrah Mooree [place] [facility] & [place] 03/29/2022 10:09:04 10/21/19 15 Date of Last Pap Smear completed Farrah Teresa [place] [facility] & [place] 03/29/2022 10:09:03 02/21/19 01 Abdominal Surgery completed [facility] [place] [facility] & [place] 03/29/2022 10:09:04 02/21/18 91 Appendectomy completed [facility] [place] [facility] & [place] 03/29/2022 10:09:04 Imaging Results None recorded. Procedure Notes None recorded. Medical Equipment None Reported. Allergies Allergen ID Allergen Name Allergen Category Reaction Reaction Severity Criticality Documentation Date Start Date Code Code System Note Provider Name and Address Organization Details Recorded Time 85529 codeine medicatio n nausea mild Not available 03/29/2022 2670 RxNorm Farrah Sunudlette null, [place] [facility] & [place] 3 10:09:03 04392 erythromy rayray medicatio n rash respirato ry distress mild moderate Not available 03/29/2022 4053 RxNorm Farrah Sunudlette null, [place] [facility] & [place] 3 10:09:03 24901 cultivate d mushroom extract food,medi cation anaphylax is hives severe severe Not available 03/29/2022 89794 17 RxNorm Farrah Sunudlette null, [place] [facility] & [place] 3 10:09:03 Medications Name Sig Start Date [...] propionate 50 mcg/actuat ion nasal spray,susp ension [place] 1 spray every day by intranasa l [...] Address Organization Details Last Updated DateTime 03/29/2022 530005.7 g 96.9 [degF] Farrah GÓMEZ - [facility] - [facility] 03/29/2022 10:11:31 Date Recorded Body weight Body temperature Heart rate Systolic And Diastolic Provider Name and Address Organization Details Last Updated DateTime 01/03/2024 94886.02 g 97.6 [degF] 82 /min 141/96 mm[Hg] Fabiola Santos [facility] & [place] 01/03/2024 11:06:43 Social History Question Answer Notes LastModified by Organizat ion Details LastModified Time Tobacco Smoking Status Current Every Day Smoker Farrah babcock, [facility] & [place] 03/29/2022 10:09:04 Are You Blind Or Do You Have Difficulty Seeing? Yes Information not available 03/29/2022 What Was The Date Of Your Most Recent Tobacco Screening? 01/02/2024 [email or web address] Information not available 03/04/2024 What Is Your Current Pack Years? 20-29packyea rs [email or web address] Information not available 03/04/2024 Are You Passively Exposed To Smoke? Yes Information not available 03/29/2022 How Much Tobacco Do You Smoke? 1 PPD Information not available 03/29/2022 How Many Years Have You Smoked Tobacco? 21 [email or web address] Information not available 03/04/2024 Sex: Unknown Functional Status Question Answer Note LastModified by Organizat ion Details LastModified Time Do you use any illicit or recreational drugs? No Information not available 03/29/2022 What is your level of alcohol consumption? Occasional [email or web address] Information not available 03/04/2024 Do you or have you ever used smokeless tobacco? Never used smokeless tobacco Information not available 03/29/2022 What is your exercise level? Occasional Information not available 03/29/2022 Mental Status Question Answer Note LastModified by Organization D etails LastModified Time Do you feel stressed (tense, restless, nervous, or anxious, or unable to sleep at night)? [id number] [email or web address] Information not available 03/04/2024 Family History Relationship [...] Jaa Kierra null, [place] - [facility] - [place] & [place] 11/24/2023 18:21:36 Tdap 7 completed Jaa Kierra null, [place] [facility] [place] & [place] 11/24/2023 18:21:36 Influenza, split virus, trivalent, preservative 9 completed Jaa Kierra null, [place] [facility] [place] & [place] 11/24/2023 18:21:36 Influenza, split virus, trivalent, preservative 1 completed Jaa Kierra null, [place] [facility] [place] & [place] 11/24/2023 18:21:36 Td (adult), 2 Lf tetanus toxoid, preservative free, adsorbed 8 completed Jaa Kierra null[place] [facility] [place] & [place] 11/24/2023 18:21:36 Hep B, adolescent/high risk 8 completed Jaa Kierra null, [place] [facility] 11/24/2023 18:21:36 Past Encounters Encounter ID Performer Location Encounter Start Date Encounter Closed Date Diagnosis/Indication Diagnosis SNOMED-CT Code Diagnosis ICD10 Code Diagnosis IMO Codes Diagnosis Note [id number] MD Remy Ospina and JACE gayle [address] [place] [id number] 03/29/2022 10:06:21 03/29/2022 10:44:23 Acute sinusitis 63766947 J01.90 Tylenol/Mo jaiden p.r.n. fever. Push p.o. fluid intake. Patient to call if symptoms worsen. Gastroesop hageal reflux disease without esophagitis 704363505 K21.9 [id number] MD Remy Ospina and JACE gayle [address] [place] [address] 01/03/2024 10:49:57 01/03/2024 11:49:01 Adult health examination 225751770 Z00.00 Gastroesop hageal reflux disease without esophagitis 643902059 K21.9 Essential hypertension 47766349 I10 Hyperlipid emia screening 961736584 Z13.220 Screening mammography 24 331306 Z12.31 Health Concerns Section Related Observation LastModified by Organization Detai ls LastModified Time None Recorded Concern Status LastModified by Organization Details LastModified Time None Recorded Advance Directives Directive None Recorded Payers Insurance Date Sequence Insurance Name Policy Number Policy Petit Covered Member ID Petit Member ID Guarantor Name 12/17/2024 1 AESUNITA [facility] (MEDICAID HMO) Farrah Solares [id number] Farrah Solares 06/25/2024 SLIDING FEE SCHEDULE - [...] for it if possible. Ayad Boo MD [address], [place], [address], [facility] & [place] 03/29/2022 10:47:48 01/03/2024 text/html Here for annual [...] disease in her father. Ayad Boo MD [address], [place], [address], [facility] & [place] 01/03/2024 20:28:03 OBGyn Episode No OBEpisode recorded.
--- OUTSIDE RECORDS SUMMARY | 2024-12-27 08:06 | XMS_ITS | Clinical Summary ---
Author Organization [facility] Address [address] [place] [address] Care Team Providers Care Mushroom Growth Media Mixer Name Role Phone Zaki Louise Renetta Primary Care Provider [phone] Allergies Active Allergy Reactions Criticality Noted Date [...] [facility]-Cervical Cancer Screening 2012 [facility]-HPV/Cotest 2012 05/26/2000 [id number] Vaccine (2 - 2024- season) 2024 12/16/2020 [...] Antibody/Antigen Screen (09/01/2021 3:27 PM EDT) Pathologist [facility] HIV 1 & 2 Antibody/Anti gen Screen Nonreactive Nonreactive 09/01/2021 5:47 PM EDT [facility] Blood Venous blood specimen / Unknown Venipuncture / Unknown 09/01/2021 3:27 PM EDT 09/01/2021 4:20 PM EDT us Bran Yi MD LAB BLOOD ORDERABLES Final Result Performing Organization Address City/[facility] Co de Phone Number HEALTHCARE LAB [address] [place] [address] * Hepatitis C Antibody - ED (09/01/2021 3:27 PM EDT) Hepatitis C Antibody Negative Negative 09/01/2021 5:46 PM EDT HEALTHCARE [facility] Blood Venous blood specimen / Unknown Venipuncture / Unknown 09/01/2021 3:27 PM EDT 09/01/2021 4:20 PM EDT us Bran Yi MD LAB BLOOD ORDERABLES Final Result Performing Organization Address [facility] Co de Phone Number HEALTHCARE [facility] [address] [place] [address] * (ABNORMAL) Cytology (05/26/2000 12:00 AM EDT) 05/26/2000 05/27/2000 8:4 7 AM EDT Narrative [facility] - 06/07/2000 10:14 AM EDT [facility] MR #: [id number] [facility] [place] [address] 1980 (Age: 20) FW Collect Date: 05/26/2000 00:00 Receipt Date: 05/27/2000 08:47 Page 1 DEPARTMENT OF PATHOLOGY AND LABORATORY MEDICINE CYTOPATHOLOGY REPORT Email: [email or web address] ATTENDING MD/Practitioner: Nancie Campos MD Service: [facility]WO Location: [facility] Reported: 06/07/2000 10:14 Collected: 05/26/2000 00:00 [...] results is suggested (please call Microbiology at [phone] for results). CLINICAL INFORMATION: Menstrual History: Date of Last Menstrual Period: {Not Provided} Contraceptive History: Depo SPECIMEN DESCRIPTION: A: CERVICAL/VAGINAL PAP SMEAR SMEARS: PAP STAIN ICD: 795.0 ABNORMAL PAP SMEAR CERVIX, NONSPECIFIC V24.2 ROUTINE FOLLOW-UP F: A; 60512 SCREEN, 71539 C\V (PO) SNOMED CODES: A; H3P900 [id number] [id number] M- 75157 In cases where a pathologist has signed out the report, the service has been rendered in part by a resident. The signing pathologist has performed and is responsible for the reported pathologic evaluation. us Historical Provider LAB PATHOLOGY ORDERABLES Fin al Result [facility] from Last 3 Months or Most Recently Relevant to Health Maintenance Insurance [employer] [facility] MEDICAID Advance Directives * Full Code (Latest Code Status on File) Date Activated Date Inactivated Comments 08/13/2020 2:06 AM 08/13/2020 7:52 PM Question Answer Comments Patient has decision-making capacity? Yes Care Teams Mushroom Growth Media Mixer Relationship Specialty Start Date End Date Zaki Louise [address] [facility] [address] PCP - General 10/15/21
--- OUTSIDE RECORDS SUMMARY | 2024-12-27 08:06 | XMS_ITS | Encounter Summary ---
Author Organization Healthcare Address [address] [place] [address] Care Team Providers Care Sprue Cutting Press Operator Name Role Phone None, None Primary Care Provider [phone] Zaki Louise Primary Care Provider Encounter Details Date Type Department Care Team (Late st Contact Info) Description 08/13/2020 Ophth Exam [facility] [address] [place] [address] Serg Henderson, Social History Tobacco [...] Suicidal Behavior (Lifetime) No 8:03 AM EDT Dulec Benavides RN documented as of this encounter Plan of Treatment Not on file documented as of this encounter Visit Diagnoses Not on filedocumented in this encounter Additional Health Concerns Infection Onset Date Last Indicated Resolved Time Meningitis Rule-Out 10/15/2021 10/15/2021 10/16/19 22 1:06 PM EDT documented as of this encounter Care Teams Sprue Cutting Press Operator Relationship Specialty Start Date End Date None, None [address] [place] [address] PCP - General 08/12/20 10/14/21 Zaki Louise [address] [place] [address] PCP - General 10/15/21 documented as of this encounter
--- OUTSIDE RECORDS SUMMARY | 2024-12-27 08:07 | XMS_ITS | Clinical Summary ---
Author Organization [facility] yste Address [address] [place] [address] Care Team Providers Care Odd Ticket Clerk Name Role Phone Unavailable Primary Care Provider [...]
--- OUTSIDE RECORDS SUMMARY | 2024-12-27 08:07 | XMS_ITS | Encounter Summary ---
Author Organization Healthcare Address [address] [place] [address] Care Team Providers Care Eviction Specialist Name Role Phone None, None Primary Care Provider [phone] Zaki Louise Primary Care Provider [phone] Encounter Details Date Type Department Care Team (Late st Contact Info) Description 09/01/2021 Ophth Exam [facility] [address] [place] [address] Fei Luna MD [address] [address] Social History Tobacco Use Types [...] documented as of this encounter Care Teams Eviction Specialist Relationship Specialty Start Date End Date None, None [address] [place] [id number] PCP - General 08/12/20 10/14/21 Zaki Louise [address] [place] [address] PCP - General 10/15/21 documented as of this encounter
--- NOTE | 2024-12-27 08:30 | US_ITS ---
FINAL REPORT CLINICAL HISTORY: RUQ abd pain, dyspepsia COMPARISON: None FINDINGS: Sonographic images of the right upper quadrant were obtained. The pancreatic tail is obscured. There is diffuse fatty infiltration of the liver. There are multiple gallstones with no evidence of cholecystitis. There is no evidence of ductal dilation. The common duct measures 3 mm. The portal vein is unremarkable. The right kidney measures 10.2 x 4.3 x 6.1 cm and is unremarkable. IMPRESSION: Multiple gallstones without cholecystitis. Fatty liver. Reviewed, Interpreted and Dictated by Stevan Cordova MD Transcribed by Afshan Eagle Authenticated and [facility]
== END 2024-12-27 23:59 | disposition home or self-care (01) ==
LOC: RAD 08:04
PROVIDERS: PCP Nurse Practitioner Family; Visit Provider Nurse Practitioner Family
DX: K80.20 Calculus of gallbladder without cholecystitis without obstruction (principal); K76.0 Fatty (change of) liver, not elsewhere classified
CPT/HCPCS: 76705

== ENCOUNTER 2025-01-01 08:43 | Outpatient (CLI) | payer OTHER, SELFPAY ==
--- OUTSIDE RECORDS SUMMARY | 2024-12-30 14:56 | XMS_ITS | Encounter Summary ---
Author Organization Healthcare Address [address] [place] [address] Care Team Providers Care Packaging Machine Supplies Distributor Name Role Phone Patriciaziyad Zaki Renetta Primary Care Provider [phone] Reason for Visit * Reason Comments Dental Pain Encounter Details Date Type Department Care Team ([facility] Contact Info) Description 12/30/2024 2:56 PM EST - 12/30/2024 3:21 PM EST Emergency [facility] [address] [place] [address] Bertha Bonilla MD [address] [place] [address] Pain, dental (Primary Dx) Discharge Disposition: Home or Self Care Social History Tobacco Use Types Packs/Day Years Used Date Smoking Tobacco: Every Day Cigarettes 1 26.9 Started: 1998 Smokeless Tobacco: Never Alcohol Use Standard Drinks/Week Comments Not Currently 0 (1 standard drink = 0.6 oz pur e alcohol) Comments No Sex and Gender Information Value Date Recorded Sex Assigned at Female 08/31/2021 11:21 AM EDT Legal Sex Female 8:46 PM EDT Gender Identity Female 08/31/2021 11:21 AM EDT Sexual Orientation Straight 08/31/2021 11 :21 AM EDT documented as of this encounter Last Filed Vital Signs Vital Sign Reading Time Taken Comments Blood Pressure 127/89 12/30/2024 2:59 PM EST Pulse 79 12/30/2024 2:59 PM EST Temperature 36.6 C (97.8 F) 12/30/2024 2:59 PM EST Respiratory Rate 18 12/30/2024 2:59 PM EST Oxygen Saturation 99% 12/30/2024 2:59 PM EST Inhaled Oxygen Concentration - - Weight 97.5 kg (215 lb) 12/30/2024 3:11 PM EST Height 170.2 cm (5' 7 ) 12/30/2024 3:11 PM EST Body Mass Index 33.67 12/30/2024 3:11 PM EST documented in this encounter Functional Status * Calculated C-SSRS Risk Score (Lifetime/Recent) Answer Date of Assessment Author No Risk Indicated 12/30/2024 3:13 PM EST Mariama Wong RN * Question Answer Date of Assessment Author 1. Wish to be (Past 1 Month) No 12/30/2024 3:13 PM EST Ritchie Cr RN 2. Non-Specific Active Suicidal Thoughts (Past 1 Month) No 12/30/2024 3:13 PM EST Ritchie Cr RN 6. Suicidal Behavior (Lifetime) No 12/30/2024 3:13 PM EST Ritchie Cr RN documented as of this encounter Discharge Instructions * Discharge Instructions* Bertha Bonilla MD - 12/30/2024 3:13 PM EST Dental walk-in clinic tomorrow. Return ffevers or facials swelling or neck swelling. documented in this encounter Medications at Time of Discharge amoxicillin (Amoxil) 500 MG capsuleIndications :Pain, dental Take 1 capsule by mouth 3 times a day. 21 capsule 12/30/2024 calcium carbonate (Tums) 500 MG chewable tablet Chew 2 tablets (1,000 mg) every night. famotidine (Pepcid) 10 MG tabletIndications: Heartburn Take 1 tablet (10 mg) by mouth 1 (one) time each day before evening meal. fluticasone (Flonase) 50 MCG/ACT nasal spray 03/29/2022 ibuprofen 800 MG tablet 11/04/2021 omeprazole (PriLOSEC) [address] capsule 03/29/2022 SUMAtriptan (Imitrex) 50 MG tablet Take 1 tablet (50 mg) by mouth if needed for migraine. May repeat dose once in 2 hours if no relief. Do not exceed 2 doses in 24 hours. topiramate (Topamax) 25 MG tabletIndications: IIH (idiopathic intracranial hypertension),Opti c neuropathy, right 25 mg daily x 2 weeks, then 25 mg twice daily 60 tablet 6 04/05/2022 documented as of this encounter Miscellaneous Notes * ED Provider Notes - Bertha Bonilla MD - 12/30/2024 2:56 PM EST - HPI Chief Complaint Patient presents with Dental Pain PIT NOTE Farrah Solares is a 44 y.o. female who presents to the ED with Dental pain. Pt arrives to the ED c/o tooth pain to her bottom L only molar. Pt reports the tooth he's been broken for awhile and is now causing her L sided facial and neck pain. Pt reports need ing to have it removed. No fevers orfacial swelling. No trouble swallowing or breathing. Patient History Past Medical History[1] Surgical History[2] Family History[3] Social History[4] Allergies: Allergies[5] Physical Exam ED Triage Vitals [12/30/24 1459] Temp Heart Rate Resp BP 36.6 ??C (97.8 ??F) 79 18 127/89 SpO2 Temp Source Heart Rate Source Patient Position 99 % Oral -- -- BP Location FiO2 (%) -- -- Physical Exam Vitals and nursing note reviewed. Constitutional: General: She is not in acute distress. Appearance: Normal appearance. HENT: Head: Normocephalic and atraumatic. Nose: No rhinorrhea. Mouth/Throat: Mouth: Mucous membranes are moist. Pharynx: Oropharynx is clear. Comments: No trismus, fracture of her single L lower molar, no surrounding periodontal abscess, no facial swelling./ Eyes: General: Right eye: No discharge. Left eye: No discharge. Conjunctiva/sclera: Conjunctivae normal. Pupils: Pupils are equal, round, and reactive to light. Pulmonary: Effort: Pulmonary effort is normal. No respiratory distress. Breath sounds: No stridor. Musculoskeletal: Cervical back: No rigidity. Skin: General: Skin is warm and dry. Neurological: Mental Status: She is alert and oriented to person, place, and time. Psychiatric: Mood and Affect: Mood normal. Behavior: Behavior normal. No data recorded ED Course & MDM Dental pain with possible periapical abscess. No s/s of airway compromise or descending infection. Will give pain control and Rx Amoxil for 1 week. Have given instructions on dental clinic walk-in and have advised to go tomorrow and arrive early. Return fevers, facial selling, trouble swallowing orbreathing. - Clinical Impressions as of 12/30/24 1512 Pain, dental Ultimately, this patient was Was discharged Home (Discharge) The encounter diagnosis was Pain, dental. . Patient was counseled on the diagnoses. Discharge medications if any are listed below. Listed medications are thought be either curative for listed diagnoses or will help control ongoing symptoms. Patient is requested to follow up with Dentistry in order to obtain specialty care. Instructions on follow up as well as precautions to return to [facility] ER provided verbally by the EM provider, as well as written in patients discharge education packet. Date/Time: 12/30/2024/3:08 PM Entered by Bryson Alva acting as scribe for Dr. Bertha Bonilla. Attending Attestation: The documentation was recorded by Bryson Alva, acting as scribe in my presence at the time of the encounter and accurately reflects the service I personally performed. 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 COVID-19 Gastro-esophageal reflux disease without esophagitis Esophageal reflux Missed Missed Personal history of other diseases of the musculoskeletal system and connective tissue History of joint pain Personal history of other diseases of the nervous system and sense organs History of drainage from ear Personal history of other diseases of the respiratory system History of sinus problem Personal history of other specified conditions History of chest pain Pneumonia Supervision of with grand multiparity, unspecified trimester High risk multigravida Threatened Threatened [2] Past Surgical History: Procedure Laterality Date OTHER SURGICAL HISTORY N/A History of appendectomy from [facility] OTHER SURGICAL HISTORY N/A History of section from [facility] [3] Family History Problem Relation Name Age of Onset Breast cancer Mother [4] Tobacco Use Smoking status: Every Day Current packs/day: 1.00 Average packs/day: 1 pack/day for 26.9 years (26.9 ttl pk-yrs) Types: Cigarettes Start date: 1998 Smokeless tobacco: Never Vaping Use Vaping status: Never Used Substance Use Topics Alcohol use: Not Currently Drug use: Not Currently Comment: Drug use: Drug use [5] Allergies Allergen Reactions Chocolate Hives Erythromycin Rash, Hives and Unknown - Patient states they do not know rxn details Azithromycin Unknown - Patient states they do not know rxn details Codeine Nausea and Other - please document in the comment field Mushroom Extract Complex (Obsolete) Other - please document in the comment field blisters Bertha Bonilla MD 12/30/24 1546 * ED Triage Notes - Edson Armenta RN - 12/30/2024 2:56 PM EST Pt presents with left sided facial pain and neck pain, stated she has a broken tooth on that side documented in this encounter Plan of Treatment Not on file documented as of this encounter Visit Diagnoses Diagnosis Pain, dental- Primary documented in this encounter Administered Medications Inactive Administered Medications - up to 3 most recent administrations Medication Order MAR Action Action Date Dose Rate Site HYDROcodone-acetaminophe n ([place]) 5-325 MG per tablet 5 mg of hydrocodone 5 mg of hydrocodone, Oral, Once, 1 dose, On 12/30/24 at 1515, STAT Given 12/30/2024 3:16 PM EST 5 mg of hydrocodone documented in this encounter Active and Recently Administered Medications Times are shown in EST. Scheduled Medication Order 12/28/2024 12/29/2024 12/30/2024 HYDROcodone-acetaminophen ([place]) 5-325 MG per tablet 5 mg of hydrocodone (COMPLETED) 5 mg of hydrocodone, Oral, Once, 1 dose, On 12/30/24 at 1515, STAT 1516 (Given - Provid er: Mariama Cr RN) documented in this encounter Additional Health Concerns Assessment Noted Time A fall risk assessment has been complete d for the patient 11/30/2022 2:13 PM EDT A Body Mass Index follow-up plan has been documented for the patient 04/05/2022 5:22 PM EST documented as of this encounter Care Teams Packaging Machine Supplies Distributor Relationship Specialty Start Date End Date Zaki Louise [address] [place] [address] PCP - General 10/15/21 documented as of this encounter
--- NOTE | 2025-01-01 08:30 | MM_ITS ---
PROCEDURE INFORMATION: Exam: MG Bilateral Screening 3D Mammography Exam date and time: 01/01/2025 8:48 AM Age: 44 years old Clinical indication: Screening examination. TECHNIQUE: Imaging protocol: Bilateral Screening tomosynthesis and 2D mammography including computer-aided detection (CAD) when performed. COMPARISON: No relevant prior studies available. FINDINGS: MAMMOGRAPHY: Breast composition: There are scattered areas of fibroglandular density. Mass: None. Architectural distortion: None. Calcifications: No suspicious calcifications. Asymmetric density: None. Skin thickening: None. Axillary adenopathy: None. IMPRESSION: No mammographic evidence of malignancy. Annual screening is recommended unless otherwise clinically indicated. ASSESSMENT: BI-RADS Category 1: Negative.
--- OUTSIDE RECORDS SUMMARY | 2025-01-01 08:46 | XMS_ITS | Clinical Summary ---
Author Organization [facility] yste Address [address] [place] [address] Care Team Providers Care Pulper Name Role Phone Unavailable Primary Care Provider [...]
--- OUTSIDE RECORDS SUMMARY | 2025-01-01 08:47 | XMS_ITS | Encounter Summary ---
Author Organization Healthcare Address [address] [place] [address] Care Team Providers Care Shade Cloth Finisher Name Role Phone None, None Primary Care Provider [phone] Zaki Louise Primary Care Provider [phone] Encounter Details Date Type Department Care Team (Late st Contact Info) Description 08/13/2020 Ophth Exam [facility] [address] [place] [address] Serg Henderson, Social History Tobacco Use [...] Rule-Out 10/15/2021 10/15/2021 10/16/19 1:06 PM EDT documented as of this encounter Care Teams Shade Cloth Finisher Relationship Specialty Start Date End Date None, None [address] [place] [id number] PCP - General 08/12/20 10/14/21 Zaki Louise [address] [place] [id number] PCP - General 10/15/21 documented as of this encounter
--- OUTSIDE RECORDS SUMMARY | 2025-01-01 08:47 | XMS_ITS | Encounter Summary ---
Author Organization Healthcare Address [address] [place] [address] Care Team Providers Care Radar Engineer Name Role Phone LaurenZaki le Renetta Primary Care Provider [phone] Encounter Details Date Type Department Care Team (Latest Contact Info) Description 12/30/2024 Travel Social History Tobacco Use Types Packs/Day Years [...] AM EDT documented as of this encounter Functional Status * Calculated C-SSRS Risk Score (Lifetime/Recent) Answer Date of Assessment Author No Risk Indicated 12/30/2024 3:13 PM Mariama Nicholson RN * Question Answer Date of Assessment Author 1. Wish to be (Past 1 Month) No 12/30/2024 3:13 PM Ritchie Copeland RN 2. Non-Specific Active Suicidal Thoughts (Past 1 Month) No 12/30/2024 3:13 PM Ritchie Copeland RN 6. Suicidal Behavior (Lifetime) No 12/30/2024 3:13 PM EST Van Hooser, Ritchie er J, RN documented as of this encounter Plan of Treatment Not on file documented as of this encounter Visit Diagnoses Not on filedocumented in this encounter Additional Health Concerns Assessment Noted Time A fall risk assessment has been complete d for the patient 11/30/2022 2:13 PM EDT A Body Mass Index follow-up plan has been documented for the patient 04/05/2022 5:22 PM EST documented as of this encounter Care Teams Radar Engineer Relationship Specialty Start Date End Date Zaki Louise [address] [place] [address] PCP - General 10/15/21 documented as of this encounter
--- OUTSIDE RECORDS SUMMARY | 2025-01-01 08:47 | XMS_ITS | Data Portability ---
Author Organization [facility] [employer] MUNIR Galaviz ADMIN Address [address] [place] [address] Care Team Providers Care Siebel Consultant Name Role Phone AYAD BOO Primary Care Provider Unavailab le Assessment No assessment recorded. Plan of Treatment Reminders Order Date Submit Date Provider Last Modified By Organization Details Last Modified Time Details Appointments None recorded. Lab lipid panel, serum 2023 024 SHILOH [facility], [address], [address], [place], [address], 4 06:38:03 TSH + free T4, serum 2023 024 SHILOH [facility], [address], [address], [place], [address], 4 06:38:00 CBC w/ auto diff 2023 024 SHILOH [facility], [address], [address], [place], [address], 4 06:38:01 CMP, serum or plasma 2023 024 SHILOH [facility], [address], [address], [place], [address], 4 06:38:02 Referral None recorded. Procedures None recorded. Surgeries None recorded. Imaging MAMMO, screening, bilateral - Okay to perform an additional tests if needed. [address] (Centralized Scheduling), [address], [place], [address], 4 10:21:45 Medication Orders omeprazole 20 mg capsule,de layed release 2023 024 [facility], [address] [place] [address], [facility], [place], [address], 5 15:58:45 lisinopril 5 mg tablet 2023 024 [facility], [address] [place] [address], [place] [address], [place], [address], 5 15:58:43 amoxicilli n 875 mg tablet [address], [address] [place] [address], [place], [address], 4 11:01:28 fluticason e propionate 50 mcg/actuat ion nasal spray,susp ension 2022 023 [facility], [address] [place] [address], [facility], [place], [address], 4 11:22:21 omeprazole 20 mg capsule,de layed release 2022 023 [facility], [address] [place] [address], [place] [address], [place], [address], 3 15:58:57 Patient TargetsNo targets recorded. Patient InstructionsNo instructions recorded. Reason for Referral None Reported. Results Created Date Observation Date Name Description Value Unit Range Abnormal Flag Note LastModifiedBy Organization Detail LastModifiedTime 01/03/20 24 01/04/2024 TSH+F REE T4 TSH 0.839 uIU/m L 0.450- 4.500 normal Not Available [facility] ([facility]) [address], [place], [address], 01/04/2024 06:38:00 11/12/20 24 01/04/2024 TSH+F REE T4 T4,free(dire ct) 1.11 NG/dL 0.82-1 .77 normal Not Available [facility] ([facility]) [address] [place], [address], 01/04/2024 06:38:00 01/03/20 24 01/04/2024 CBC WITH DIFFE RENTI AL/PL ATELE T WBC 9.3 x10e3 /uL 3.4-10 .8 normal Not Available [facility] ([facility]) [address] [place], [address], 01/04/2024 06:38:01 01/03/20 24 01/04/2024 CBC WITH DIFFE RENTI AL/PL ATELE T RBC 4.53 x10e6 /uL 3.77-5 .28 normal Not Available [facility] ([facility]) [address] [place], [address], 01/04/2024 06:38:01 01/03/20 24 01/04/2024 CBC WITH DIFFE RENTI AL/PL ATELE T hemoglobin 15.3 g/dL 11.1-1 5.9 normal Not Available [facility] ([facility]) [address] [place], [address], 01/04/2024 06:38:01 01/03/20 24 01/04/2024 CBC WITH DIFFE RENTI AL/PL ATELE T hematocrit 45.4 % 34.0-4 6.6 normal Not Available [facility] ([facility]) [address] [place], [address], 01/04/2024 06:38:01 01/03/20 24 01/04/2024 CBC WITH DIFFE RENTI AL/PL ATELE T MCV 100 fL 79-97 above high normal Not Available [facility] ([facility]) [address] [place], [address], 01/04/2024 06:38:01 01/03/20 24 01/04/2024 CBC WITH DIFFE RENTI AL/PL ATELE T MCH 33.8 pg 26.6-3 3.0 above high normal Not Available [facility] ([facility]) [address] [facility], [place], [address], 01/04/2024 06:38:01 01/03/20 24 01/04/2024 CBC WITH DIFFE RENTI AL/PL ATELE T MCHC 33.7 g/dL 31.5-3 5.7 normal Not Available [facility] ([facility]) [address] [place], [address], 01/04/2024 06:38:01 01/03/20 24 01/04/2024 CBC WITH DIFFE RENTI AL/PL ATELE T RDW 11.7 % 11.7-1 5.4 Not Available [facility] ([facility]) [address] [facility], [place], [address], 01/04/2024 06:38:01 01/03/20 24 01/04/2024 CBC WITH DIFFE RENTI AL/PL ATELE T platelets 272 x10e3 /uL 150-45 0 normal Not Available [facility] ([facility]) [address] [facility], [place], [address], 01/04/2024 06:38:01 01/03/20 24 01/04/2024 CBC WITH DIFFE RENTI AL/PL ATELE T neutrophils 68 % not estab. normal Not Available [facility] ([facility]) [address] [place], [address], 01/04/2024 06:38:01 01/03/20 24 01/04/2024 CBC WITH DIFFE RENTI AL/PL ATELE T lymphs 24 % not estab. normal Not Available [facility] ([facility]) [address] [place], [address], 01/04/2024 06:38:01 01/03/20 24 01/04/2024 CBC WITH DIFFE RENTI AL/PL ATELE T monocytes 6 % not estab. normal Not Available [facility] ([facility]) [address] [facility], [place], [address], 01/04/2024 06:38:01 01/03/20 24 01/04/2024 CBC WITH DIFFE RENTI AL/PL ATELE T eos 2 % not estab. normal Not Available [facility] ([facility]) [address] [place], [address], 01/04/2024 06:38:01 01/03/20 24 01/04/2024 CBC WITH DIFFE RENTI AL/PL ATELE T basos 0 % not estab. normal Not Available [facility] ([facility]) [address] [place], [address], 01/04/2024 06:38:01 01/03/20 24 01/04/2024 CBC WITH DIFFE RENTI AL/PL ATELE T immature cells [employer] Not Available [facility] ([facility]) [address] [place], [address], 01/04/2024 06:38:01 01/03/20 24 01/04/2024 CBC WITH DIFFE RENTI AL/PL ATELE T neutrophils (absolute) 6.3 x10e3 /uL 1.4-7. 0 normal Not Available [facility] ([facility]) [address] [place], [address], 01/04/2024 06:38:01 01/03/20 24 01/04/2024 CBC WITH DIFFE RENTI AL/PL ATELE T lymphs (absolute) 2.3 x10e3 /uL 0.7-3. 1 normal Not Available [facility] ([facility]) [address] [place], [address], 01/04/2024 06:38:01 01/03/20 24 01/04/2024 CBC WITH DIFFE RENTI AL/PL ATELE T monocytes(ab solute) 0.5 x10e3 /uL 0.1-0. 9 normal Not Available [facility] ([facility]) [address] [facility], [place], [address], 01/04/2024 06:38:01 01/03/20 24 01/04/2024 CBC WITH DIFFE RENTI AL/PL ATELE T eos (absolute) 0.2 x10e3 /uL 0.0-0. 4 normal Not Available [facility] ([facility]) [address] [facility], [place], [address], 01/04/2024 06:38:01 01/03/20 24 01/04/2024 CBC WITH DIFFE RENTI AL/PL ATELE T baso (absolute) 0.0 x10e3 /uL 0.0-0. 2 normal Not Available [facility] ([facility]) [address] [facility], [place], [address], 01/04/2024 06:38:01 01/03/20 24 01/04/2024 CBC WITH DIFFE RENTI AL/PL ATELE T immature granulocytes 0 % not estab. Not Available [facility] ([facility]) [address] [facility], [place], [address], 01/04/2024 06:38:01 01/03/20 24 01/04/2024 CBC WITH DIFFE RENTI AL/PL ATELE T immature grans (abs) 0.0 x10e3 /uL 0.0-0. 1 Not Available [facility] ([facility]) [address] [place], [address], 01/04/2024 06:38:01 01/03/20 24 01/04/2024 CBC WITH DIFFE RENTI AL/PL ATELE T NRBC [employer] Not Available [facility] ([facility]) [address] [place], [address], 01/04/2024 06:38:01 01/03/20 24 01/04/2024 CBC WITH DIFFE CASSIDY AL/PL ELIDIALE T hematology comments: [employer] Not Available [facility] ([facility]) [address] [facility], [place], [address], 01/04/2024 06:38:01 01/03/20 24 01/04/2024 COMP. METAB OLIC PANEL (14) glucose 98 mg/dL 70-99 normal Not Available [facility] ([facility]) [address] [facility], [place], [address], 01/04/2024 06:38:02 01/03/20 24 01/04/2024 COMP. METAB OLIC PANEL (14) BUN 8 mg/dL 6-24 normal Not Available [facility] ([facility]) [address] [facility], [place], [address], 01/04/2024 06:38:02 01/03/20 24 01/04/2024 COMP. METAB OLIC PANEL (14) creatinine 0.76 mg/dL 0.57-1 .00 normal Not Available [facility] ([facility]) [address] [facility], [place], [address], 01/04/2024 06:38:02 01/03/20 24 01/04/2024 COMP. METAB OLIC PANEL (14) BUN/creatini ne ratio 11 9-23 normal Not Available [facility] ([facility]) [address] [facility], [place], [address], 01/04/2024 06:38:02 01/03/20 24 01/04/2024 COMP. METAB OLIC PANEL (14) sodium 142 mmol/ L 134-14 4 normal Not Available [facility] ([facility]) [address] [facility], [place], [address], 01/04/2024 06:38:02 01/03/20 24 01/04/2024 COMP. METAB OLIC PANEL (14) potassium 4.8 mmol/ L 3.5-5. 2 normal Not Available [facility] ([facility]) [address] [place], [address], 01/04/2024 06:38:02 01/03/20 24 01/04/2024 COMP. METAB OLIC PANEL (14) chloride 104 mmol/ L 96-106 normal Not Available [facility] ([facility]) [address] [place], [address], 01/04/2024 06:38:02 01/03/20 24 01/04/2024 COMP. METAB OLIC PANEL (14) carbon dioxide, total 23 mmol/ L 20-29 normal Not Available [facility] ([facility]) [address] [place], [address], 01/04/2024 06:38:02 01/03/20 24 01/04/2024 COMP. METAB OLIC PANEL (14) calcium 10.1 mg/dL 8.7-10 .2 normal Not Available [facility] ([facility]) [address] [place], [address], 01/04/2024 06:38:02 01/03/20 24 01/04/2024 COMP. METAB OLIC PANEL (14) protein, total 6.8 g/dL 6.0-8. 5 normal Not Available [facility] ([facility]) [address] [place], [address], 01/04/2024 06:38:02 01/03/20 24 01/04/2024 COMP. METAB OLIC PANEL (14) albumin 4.3 g/dL 3.9-4. 9 normal Not Available [facility] ([facility]) [address] [facility] [place], [address], 01/04/2024 06:38:02 01/03/20 24 01/04/2024 COMP. METAB OLIC PANEL (14) globulin, total 2.5 g/dL 1.5-4. 5 Not Available [facility] ([facility]) [address], [place], [address], 01/04/2024 06:38:02 01/03/20 24 01/04/2024 COMP. METAB OLIC PANEL (14) bilirubin, total 0.2 mg/dL 0.0-1. 2 normal Not Available [facility] ([facility]) [address] [place], [address], 01/04/2024 06:38:02 01/03/20 24 01/04/2024 COMP. METAB OLIC PANEL (14) alkaline phosphatase 86 IU/L 44-121 normal Not Available [facility] ([facility]) [address] [place], [address], 01/04/2024 06:38:02 01/03/20 24 01/04/2024 COMP. METAB OLIC PANEL (14) AST (SGOT) 15 IU/L 0-40 normal Not Available [facility] ([facility]) [address] [facility], [place], [address], 01/04/2024 06:38:02 01/03/20 24 01/04/2024 COMP. METAB OLIC PANEL (14) ALT (SGPT) 16 IU/L 0-32 normal Not Available [facility] ([facility]) [address] [facility] [place], [address], 01/04/2024 06:38:02 01/03/20 24 01/04/2024 LIPID PANEL cholesterol, total 150 mg/dL 100-19 9 normal Not Available [facility] ([facility]) [address] [facility] [place], [address], 01/04/2024 06:38:03 01/03/20 24 01/04/2024 LIPID PANEL triglyceride s 111 mg/dL 0-149 normal Not Available [facility] ([facility]) [address] [facility] [place], [address], 01/04/2024 06:38:03 11/12/20 24 01/04/2024 LIPID PANEL HDL cholesterol 36 mg/dL >39 below low normal Not Available [facility] ([facility]) [address] [facility], [place], [address], 01/04/2024 06:38:03 01/03/20 24 01/04/2024 LIPID PANEL VLDL cholesterol celine 20 mg/dL 5-40 Not Available [facility] ([facility]) [address] [facility], [place], [address], 01/04/2024 06:38:03 01/03/20 24 01/04/2024 LIPID PANEL LDL chol calc ([facility]) 94 mg/dL 0-99 Not Available [facility] ([facility]) [address] [facility], [place], [address], 01/04/2024 06:38:03 01/03/20 24 01/04/2024 LIPID PANEL LDL calc comment: [employer] Not Available [facility] ([facility]) [address] [facility], [place], [address], 01/04/2024 06:38:03 08/20/19 25 08/19/2024 XR, chest , 2 view No observ ation record ed. [email or web address], [place], [address], 08/23/2024 11:00:41 08/20/19 25 08/19/2024 elect justin hanna am No observ ation record ed. [email or web address], [place], [place], [address], 08/23/2024 11:04:24 Result Notes None recorded. Problems Name Problem SNOMED Code Status Onset Date Resolution Date Notes Provider Name and Address Organization Details Recorded Time Gastroesophag eal reflux disease without esophagitis 924873807 Active 2022 Ayad Boo MD [address] , [place], [address] , [facility] & [place] 3 10:45:39 Essential hypertension 87906985 Active 2023 Ayad Boo MD [address] [facility], [place], [address] , [place] [facility] & [place] 4 11:33:10 Problem Notes None recorded. Procedures Surgical History Date Name Laterality Status Provider Name and Address Organization Details Recorded Time 02/21/19 16 Abdominal Surgery completed Farrah Mooree [place] - [facility] & [place] 03/29/2022 10:09:04 10/21/19 15 Date of Last Pap Smear completed Farrah Teresa [place] [facility] & [place] 03/29/2022 10:09:03 02/21/19 01 Abdominal Surgery completed [facility] Teresae [place] [facility] & [place] 03/29/2022 10:09:04 02/21/18 91 Appendectomy completed [facility] [place] [facility] & [place] 03/29/2022 10:09:04 Imaging Results None recorded. Procedure Notes None recorded. Medical Equipment None Reported. Allergies Allergen ID Allergen Name Allergen Category Reaction Reaction Severity Criticality Documentation Date Start Date Code Code System Note Provider Name and Address Organization Details Recorded Time 33319 codeine medicatio n nausea mild Not available 03/29/2022 2670 RxNorm Farrah Sunudlette null, [place] [facility] & [place] 3 10:09:03 [address]1111 erythromy rayray medicatio n rash respirato ry distress mild moderate Not available 03/29/2022 4053 RxNorm Farrah Sunudlette null, [place] [facility] & [place] 3 10:09:03 42624 cultivate d mushroom extract food,medi cation anaphylax is hives severe severe Not available 03/29/2022 45016 17 RxNorm Farrah Sunudlette null, [place] [facility] & [place] 3 10:09:03 Medications Name Sig Start Date [...] propionate 50 mcg/actuat ion nasal spray,susp ension [place] 1 spray every day by intranasa l [...] Address Organization Details Last Updated DateTime 03/29/2022 419339.7 g 96.9 [degF] Farrah GÓMEZ - [facility] - [facility] 03/29/2022 10:11:31 Date Recorded Body weight Body temperature Heart rate Systolic And Diastolic Provider Name and Address Organization Details Last Updated DateTime 01/03/2024 28814.02 g 97.6 [degF] 82 /min 141/96 mm[Hg] Fabiola Santos [facility] & [place] 01/03/2024 11:06:43 Social History Question Answer Notes LastModified by Organizat ion Details LastModified Time Tobacco Smoking Status Current Every Day Smoker Farrah babcock, [facility] & [place] 03/29/2022 10:09:04 Are You Blind Or Do You Have Difficulty Seeing? Yes Information not available 03/29/2022 What Was The Date Of Your Most Recent Tobacco Screening? 01/02/2024 [email or web address] Information not available 03/04/2024 What Is Your Current Pack Years? 20-29packyea rs [email or web address] Information not available 03/04/2024 Are You Passively Exposed To Smoke? Yes Information not available 03/29/2022 How Much Tobacco Do You Smoke? 1 PPD Information not available 03/29/2022 How Many Years Have You Smoked Tobacco? 21 [email or web address] Information not available 03/04/2024 Sex: Unknown Functional Status Question Answer Note LastModified by Organizat ion Details LastModified Time Do you use any illicit or recreational drugs? No Information not available 03/29/2022 What is your level of alcohol consumption? Occasional [email or web address] Information not available 03/04/2024 Do you or have you ever used smokeless tobacco? Never used smokeless tobacco Information not available 03/29/2022 What is your exercise level? Occasional Information not available 03/29/2022 Mental Status Question Answer Note LastModified by Organization D etails LastModified Time Do you feel stressed (tense, restless, nervous, or anxious, or unable to sleep at night)? [id number] [email or web address] Information not available 03/04/2024 Family History Relationship [...] null, [place] - [facility] - [place] & [place] 11/24/2023 18:21:36 Tdap 7 completed Jaa Kierra null, [place] [facility] [place] & [place] 11/24/2023 18:21:36 Influenza, split virus, trivalent, preservative 9 completed Jaa Kierra null, [place] [facility] [place] [facility] [place] 11/24/2023 18:21:36 Influenza, split virus, trivalent, preservative 1 completed Jaa Kierra null, [place] [facility] [place] [facility] [place] 11/24/2023 18:21:36 Td (adult), 2 Lf tetanus toxoid, preservative free, adsorbed 8 completed Jaa Kierra null, [place] [facility] [place] [facility] [place] 11/24/2023 18:21:36 Hep B, adolescent/high risk 8 completed Jaa Kierra null, [place] [facility] 11/24/2023 18:21:36 Past Encounters Encounter ID Performer Location Encounter Start Date Encounter Closed Date Diagnosis/Indication Diagnosis SNOMED-CT Code Diagnosis ICD10 Code Diagnosis IMO Codes Diagnosis Note [id number] MD Remy Ospina and JACE gayle [address] [place] [phone] 03/29/2022 10:06:21 03/29/2022 10:44:23 Acute sinusitis 56907281 J01.90 Tylenol/Mo jaiden p.r.n. fever. Push p.o. fluid intake. Patient to call if symptoms worsen. Gastroesop hageal reflux disease without esophagitis 453748246 K21.9 [id number] MD Remy Ospina and JACE gayle [address] [place] [phone] 01/03/2024 10:49:57 01/03/2024 11:49:01 Adult health examination 174228621 Z00.00 Gastroesop hageal reflux disease without esophagitis 171036463 K21.9 Essential hypertension 11849085 I10 Hyperlipid emia screening 928988756 Z13.220 Screening mammography 24 505584 Z12.31 Health Concerns Section Related Observation LastModified by Organization Detai ls LastModified Time None Recorded Concern Status LastModified by Organization Details LastModified Time None Recorded Advance Directives Directive None Recorded Payers Insurance Date Sequence Insurance Name Policy Number Policy Petit Covered Member ID Petit Member ID Guarantor Name 12/17/2024 1 [facility] (MEDICAID HMO) Farrah Solares [id number] Farrah Solares 06/25/2024 SLIDING FEE SCHEDULE - [...] for it if possible. Ayad Boo MD [address], [place], [address], [facility] & [place] 03/29/2022 10:47:48 01/03/2024 text/html Here for annual [...] disease in her father. Ayad Boo MD [address], [place], [address], [facility] & [place] 01/03/2024 20:28:03 OBGyn Episode No OBEpisode recorded.
--- OUTSIDE RECORDS SUMMARY | 2025-01-01 08:47 | XMS_ITS | Encounter Summary ---
Author Organization Healthcare Address [address] [place] [address] Care Team Providers Care Chief Pilot Name Role Phone None, None Primary Care Provider [phone] Zaki Louise Primary Care Provider [phone] Encounter Details Date Type Department Care Team (Late st Contact Info) Description 09/01/2021 Ophth Exam [facility] [address] [place] [address] Fei Luna MD [address] [address] Social History Tobacco Use Types [...] documented as of this encounter Care Teams Chief Pilot Relationship Specialty Start Date End Date None, None [address] [place] [address] PCP - General 08/12/20 10/14/21 Zaki Louise [address] [place] [address] PCP - General 10/15/21 documented as of this encounter
--- OUTSIDE RECORDS SUMMARY | 2025-01-01 08:47 | XMS_ITS | Clinical Summary ---
Author Organization [facility] Address [address] [place] [address] Care Team Providers Care Used Car Lot Attendant Name Role Phone Zaki Louise Renetta Primary Care Provider [phone] Allergies Active Allergy Reactions Criticality Noted Date [...] (PriLOSEC) [address] capsule 3 Active amoxicillin (Amoxil) 500 MG capsuleIndicatio ns:Pain, dental Take 1 capsule by mouth 3 times a day. 21 capsule 5 Active Active Problems Problem Noted Date Diagnosed [...] Acute ischemic left MCA stroke 09/01/2021 09/02/2021 Encounters Date Type Department Care Team Description 12/30/2024 2:56 PM EST - 12/30/2024 3:21 PM EST Emergency [facility] Emergency Department [address] [place] [address] Bertha Bonilla MD Pain, dental (Primary Dx) Discharge Disposition: Home or Self Care 12/30/2024 Travel from Last 3 Months Family History Medical History Relation Name Comments Breast cancer Mother Relation Name Status Comments Mother Social History Tobacco Use Types Packs/Day Years Used Date Smoking Tobacco: Every Day Cigarettes 1 26.9 Started: 1998 Smokeless Tobacco: Never Tobacco Cessation:Ready [...] Mass Index 33.67 12/30/2024 3:11 PM EST Plan of Treatment Health Maintenance Due Date Last Done Comments [facility]-Depression Screening 1982 [facility]-/Child/Adol SDOH Screenings 1982 [facility]-Varicella Vaccines (1 of 2 - 13+ 2-dose series) 1995 [facility]-Hepatitis B Vaccines (2 of 3 - 3-dose series) 10/30/1997 10/02/1997 [facility]- SDOH Screenings 2000 [facility]-Adult SDOH Screenings 2000 [facility]-Pneumococcal Vaccine: Pediatrics (0 to 5 Years) and At-Risk Patients (6 to 49 Years) (1 of 2 - PCV) 2001 [facility]-Pap Smear 05/27/2003 05/26/2000 HPV Vaccines (1 - 3-dose SCDM series) 2009 [facility]-Cervical Cancer Screening 2012 [facility]-HPV/Cotest 2012 05/26/2000 [id number] Vaccine (2 - season) 2024 12/16/2020 [facility]-Influenza Vaccine (#1) 2024 [...] Antibody/Antigen Screen (09/01/2021 3:27 PM EDT) Pathologist [facility] HIV 1 & 2 Antibody/Anti gen Screen Nonreactive Nonreactive 09/01/2021 5:47 PM EDT [facility] Blood Venous blood specimen / Unknown Venipuncture / Unknown 09/01/2021 3:27 PM EDT 09/01/2021 4:20 PM EDT us Bran Yi MD LAB BLOOD ORDERABLES Final Result [facility] [address] [place] [address] * Hepatitis C Antibody - ED (09/01/2021 3:27 PM EDT) Pathologist [facility] Hepatitis C Antibody Negative Negative 09/01/2021 5:46 PM EDT HEALTHCARE LAB Blood Venous blood specimen / Unknown Venipuncture / Unknown 09/01/2021 3:27 PM EDT 09/01/2021 4:20 PM EDT us Bran Yi MD LAB BLOOD ORDERABLES Final Result [facility] [address] [place] [address] * (ABNORMAL) Cytology (05/26/2000 12:00 AM EDT) 05/26/2000 05/27/2000 8:4 7 AM EDT Narrative [facility] - 06/07/2000 10:14 AM EDT [facility] MR #: [id number] [facility] [address]NG[address] [place] [id number] 1980 (Age: 20) FW Collect Date: 05/26/2000 00:00 Receipt Date: 05/27/2000 08:47 Page 1 DEPARTMENT OF PATHOLOGY AND LABORATORY MEDICINE CYTOPATHOLOGY REPORT Email: [email or web address] [email or web address] ATTENDING MD/Practitioner: Nancie Campos MD Service: CW Location: [facility] Reported: 06/07/2000 10:14 Collected: 05/26/2000 00:00 [...] results is suggested (please call Microbiology at [phone] for results). CLINICAL INFORMATION: Menstrual History: Date of Last Menstrual Period: {Not Provided} Contraceptive History: Depo SPECIMEN DESCRIPTION: A: CERVICAL/VAGINAL PAP SMEAR SMEARS: PAP STAIN ICD: 795.0 ABNORMAL PAP SMEAR CERVIX, NONSPECIFIC V24.2 ROUTINE FOLLOW-UP F: A; 23311 SCREEN, 33326 C\V (PO) SNOMED CODES: A; [id number] [id number] M- [id number] In cases where a pathologist has signed out the report, the service has been rendered in part by a resident. The signing pathologist has performed and is responsible for the reported pathologic evaluation. us Historical Provider LAB PATHOLOGY ORDERABLES Fin al Result [facility]QUEST from Last 3 Months or Most Recently Relevant to Health Maintenance Insurance [employer] [facility] MEDICAID Advance Directives * Full Code (Latest Code Status on File) Date Activated Date Inactivated Comments 08/13/2020 2:06 AM 08/13/2020 7:52 PM Question Answer Comments Patient has decision-making capacity? Yes Care Teams Used Car Lot Attendant Relationship Specialty Start Date End Date Zaki Louise [address] [place] [address] PCP - General 10/15/21
== END 2025-01-01 23:59 | disposition home or self-care (01) ==
LOC: RAD 08:43
PROVIDERS: PCP Nurse Practitioner Family; Visit Provider Nurse Practitioner Family
DX: Z12.31 Encounter for screening mammogram for malignant neoplasm of breast (principal); R92.323 Mammographic fibroglandular density, bilateral breasts
CPT/HCPCS: 77063; 77067

== ENCOUNTER 2025-01-15 12:42 | Outpatient (CLI) | payer OTHER, SELFPAY ==
--- OUTSIDE RECORDS SUMMARY | 2024-12-30 14:56 | XMS_ITS | Encounter Summary ---
Author Organization Healthcare Address [address] [place] [address] Care Team Providers Care Pork Cutlet Maker Name Role Phone Zaki Louise Primary Care Provider [phone] Reason for Visit * Reason Comments Dental Pain Encounter Details Date Type Department Care Team ([facility] Contact Info) Description 12/30/2024 2:56 PM EST - 12/30/2024 3:21 PM EST Emergency [facility] Emergency Department [address] [place] [address] Bertha Bonilla MD [address] [place] [address] Pain, dental (Primary Dx) Discharge Disposition: Home [...] as well as precautions to return to [facility] ER provided verbally by the [...] SURGICAL HISTORY N/A History of appendectomy from [facility] OTHER SURGICAL HISTORY N/A History of section from [facility] [3] Family History Problem Relation Name Age [...] Action Date Dose Rate Site HYDROcodone-acetaminophe n ([place]) 5-325 MG per tablet 5 mg of hydrocodone 5 mg of hydrocodone, Oral, Once, 1 dose, On 12/30/24 at 1515, STAT Given 12/30/2024 3:16 PM EST 5 mg of hydrocodone documented in this encounter Active and Recently Administered Medications Times are shown in EST. Scheduled Medication Order 12/28/2024 12/29/2024 12/30/2024 HYDROcodone-acetaminophen ([place]) 5-325 MG per tablet 5 mg of [...] documented as of this encounter Care Teams Pork Cutlet Maker Relationship Specialty Start Date End Date Zaki Louise [id number] PCP - General 10/15/21 documented as of this encounter
[2025-01-15 08:48] VITALS: BMI 33.6
--- OUTSIDE RECORDS SUMMARY | 2025-01-15 12:47 | XMS_ITS | Encounter Summary ---
Author Organization Healthcare Address [address] [place] [address] Care Team Providers Care Real Estate Attorney Name Role Phone None, None Primary Care Provider [phone] Zaki Louise Primary Care Provider [phone] Encounter Details Date Type Department Care Team (Late st Contact Info) Description 08/13/2020 Ophth Exam [facility] [address] [place] [phone] Serg Henderson, Social History Tobacco Use [...] documented as of this encounter Care Teams Real Estate Attorney Relationship Specialty Start Date End Date None, None [address] [place] [address] PCP - General 08/12/20 10/14/21 Zaki Louise [id number] PCP - General 10/15/21 documented as of this encounter
--- OUTSIDE RECORDS SUMMARY | 2025-01-15 12:47 | XMS_ITS | Clinical Summary ---
Author Organization [facility] Address [address] [place] [address] Care Team Providers Care Emergency Management Coordinator Name Role Phone Zaki Louise Primary Care Provider [phone] Allergies Active Allergy Reactions Criticality Noted Date [...] PM EST Emergency [facility] Emergency Department [address] [place] [phone] Bertha Bonilla MD Pain, dental (Primary Dx) [...] [facility]-Cervical Cancer Screening 2012 [facility]-HPV/Cotest 2012 05/26/2000 [id number] Vaccine (2 - season) 2024 12/16/2020 [facility]-Influenza [...] Antibody/Antigen Screen (09/01/2021 3:27 PM EDT) Pathologist [facility] HIV 1 & 2 Antibody/Anti gen Screen Nonreactive Nonreactive 09/01/2021 5:47 PM EDT HEALTHCARE LAB Blood Venous blood specimen / Unknown Venipuncture / Unknown 09/01/2021 3:27 PM EDT 09/01/2021 4:20 PM EDT us Bran Yi MD LAB BLOOD ORDERABLES Final Result [facility] [address] [place] [address] * Hepatitis C Antibody - ED (09/01/2021 3:27 PM EDT) Pathologist [facility] Hepatitis C Antibody Negative Negative 09/01/2021 5:46 PM EDT HEALTHCARE LAB Blood Venous blood specimen / Unknown Venipuncture / Unknown 09/01/2021 3:27 PM EDT 09/01/2021 4:20 PM EDT us Bran Yi MD LAB BLOOD ORDERABLES Final Result [facility] [address] [place] [address] * (ABNORMAL) Cytology (05/26/2000 12:00 AM EDT) 05/26/2000 05/27/2000 8:4 7 AM EDT Narrative [facility] - 06/07/2000 10:14 AM EDT [facility] MR #: [id number] [facility] ÁNG[address] [place] [address] 1980 (Age: 20) FW Collect Date: 05/26/2000 00:00 Receipt Date: 05/27/2000 08:47 Page 1 DEPARTMENT OF PATHOLOGY AND LABORATORY MEDICINE CYTOPATHOLOGY REPORT Email: [email or web address] [phone] ATTENDING MD/Practitioner: Nancie Campos MD Service: CWO Location: [facility] Reported: 06/07/2000 10:14 Collected: 05/26/2000 [...] results is suggested (please call Microbiology at [phone] for results). CLINICAL INFORMATION: Menstrual History: Date of Last Menstrual Period: {Not Provided} Contraceptive History: Depo SPECIMEN DESCRIPTION: A: CERVICAL/VAGINAL PAP SMEAR SMEARS: PAP STAIN ICD: 795.0 ABNORMAL PAP SMEAR CERVIX, NONSPECIFIC V24.2 ROUTINE FOLLOW-UP F: A; 55452 SCREEN, 70698 C\V (PO) SNOMED CODES: A; [id number] [id number] M-[id number] M- 35661 In cases where a pathologist has signed out the report, the service has been rendered in part by a resident. The signing pathologist has performed and is responsible for the reported pathologic evaluation. us Historical Provider LAB PATHOLOGY ORDERABLES Fin al Result [facility] from Last 3 Months or Most Recently Relevant to Health Maintenance Insurance [employer] MEDICAID Advance Directives * Full Code (Latest Code Status on File) Date Activated Date Inactivated Comments 08/13/2020 2:06 AM 08/13/2020 7:52 PM Question Answer Comments Patient has decision-making capacity? Yes Care Teams Emergency Management Coordinator Relationship Specialty Start Date End Date Zaki Louise [id number] PCP - General 10/15/21
--- OUTSIDE RECORDS SUMMARY | 2025-01-15 12:47 | XMS_ITS | Clinical Summary ---
Author Organization [facility] Address [address] [place] [address] Care Team Providers Care Principal Accounts Clerk Name Role Phone Unavailable Primary Care [...] e 11/30/2022 Family and Community Support Answer Pavna e Recorded Help with Day-to-Day Activities Not [...]
--- OUTSIDE RECORDS SUMMARY | 2025-01-15 12:47 | XMS_ITS | Encounter Summary ---
Author Organization Healthcare Address [address] [place] [address] Care Team Providers Care Torpedo Man Name Role Phone Zaki Louise Primary Care Provider [phone] Encounter Details Date Type Department Care Team [...] documented as of this encounter Care Teams Torpedo Man Relationship Specialty Start Date End Date Zaki Louise [id number] PCP - General 10/15/21 documented as of this encounter
--- OUTSIDE RECORDS SUMMARY | 2025-01-15 12:47 | XMS_ITS | Encounter Summary ---
Author Organization Healthcare Address [address] [place] [address] Care Team Providers Care Senior Drafter Name Role Phone None, None Primary Care Provider [phone] Zaki Louise Primary Care Provider [phone] Encounter Details Date Type Department Care Team (Late st Contact Info) Description 09/01/2021 Ophth Exam [facility] [address] [place] [address] Fei Luna MD [address] [address] Social History Tobacco Use Types [...] documented as of this encounter Care Teams Senior Drafter Relationship Specialty Start Date End Date None, None [address] [place] [id number] PCP - General 08/12/20 10/14/21 Zaki Louise [id number] PCP - General 10/15/21 documented as of this encounter
--- NOTE | 2025-01-15 12:58 | ECG_ITS ---
APPROVED REPORT Exam: Resting ECG HR:85 bpm ECG Measurements Heart Rate 85 AXES NJ 104 P 63 QRSd 86 QRS 53 QT 357 T 17 QTc 400 Conclusion SINUS RHYTHM WITH SHORT NJ INTERVAL LOW QRS VOLTAGE IN PRECORDIAL LEADS [QRS DEFLECTION < 1.0 mV IN CHEST LEADS] MINIMAL ST DEPRESSION [0.025+ mV ST DEPRESSION] BORDERLINE ECG UNCONFIRMED REPORT Electronically signed by : Alex Orozco MD 01/16/2025 08:43:12
[2025-01-15 13:05] LABS: Hematocrit 41.7 % (37.0-47.0); Hemoglobin 14.1 g/dL (12.2-16.2); Immature Granulocytes % 0.4 %; Mean Corpuscular HGB Conc 33.8 g/dL (31.8-35.4); Mean Corpuscular Hemoglobin 33.4 pg (27.0-31.2); Mean Corpuscular Volume 98.8 fl (81-99); Nucleated Red Blood Cells % 0 %; Platelet Count 274 K/mm3 (142-424); Red Blood Count 4.22 M/mm3 (4.20-5.40); Red Cell Distribution Width-SD 45.9 fL; White Blood Count 11.0 K/mm3 (4.8-10.8)
[2025-01-15 13:18] LABS: Alanine Aminotransferase 24 U/L (12-78); Albumin Level 4.2 g/dl (3.5-5.0); Albumin/Globulin Ratio 1.5 (1.1-1.8); Alkaline Phosphatase 81 U/L (38-126); Anion Gap 11.0 mEq/L (5-15); Aspartate Amino Transferase 23 U/L (14-36); Bilirubin,Total 0.2 mg/dl (0.2-1.3); Blood Urea Nitrogen 13 mg/dl (7-17); Calcium 9.2 mg/dl (8.4-10.2); Carbon Dioxide 21 mmol/L (22.0-30.0); Chloride 108 mmol/L (98-107); Creatinine Clearance Estimated 113 mL/min (50-200); Creatinine,Serum 1.00 mg/dl (0.52-1.04); Estimated Glomerular Filt Rate 61 ml/min (>60); GFR (African American) 74 ML/MIN (>60); Globulin 2.8 g/dL (1.3-3.2); Glucose 120 mg/dl (74-100); Potassium 4.0 mmoL/L (3.5-5.1); Sodium 136 mmol/L (136-145); Total Protein,Serum 7.0 g/dl (6.3-8.2)
[2025-01-15 14:16] LABS: HCG Qualitative, Serum Negative (Negative)
== END 2025-01-15 23:59 | disposition home or self-care (01) ==
LOC: PREOP 12:43
PROVIDERS: PCP Nurse Practitioner Family; Visit Provider Surgery
DX: Z01.810 Encounter for preprocedural cardiovascular examination (principal); Z01.812 Encounter for preprocedural laboratory examination; R94.31 Abnormal electrocardiogram [ECG] [EKG]
CPT/HCPCS: 80053; 84703; 85025; 93005